=== PATIENT | female | born 1970 | race Two or more races ===

== ENCOUNTER 2017-09-01 12:30 | Inpatient (IN) | payer MEDICAID ==
[~2017-09-01] VITALS: Ht 160 cm; Wt 113.8 kg
[2017-09-01] MEDS ORDERED: ASPirin 81 mg TAB PO ONE (12:45)
[2017-09-01] MEDS ORDERED: HEPARIN SODIUM (PORCINE) 5000 UNITS/ML 1ML VIAL ONE (12:51)
[2017-09-01] MEDS ORDERED: IOHEXOL 350 MG/ML 100ML IJ ONE (12:53)
[2017-09-01] MEDS ORDERED: LIDOCAINE 2%HCL (LOCAL ANESTH.) INJ 20ML MDV ONE (12:53)
[2017-09-01] MEDS ORDERED: VERAPAMIL 2.5MG/ML INJ 2ML VIAL IV ONE (12:59)
[2017-09-01] MEDS ORDERED: ANGIOMAX 250 MG VIAL IV ONE ×2 (12:59→13:25)
[2017-09-01] MEDS ORDERED: HEPARIN 1,000 UNITS/ml 1ML VIAL IV ONE (13:00)
[2017-09-01] MEDS ORDERED: fentaNYL CITRATE 100 MCG/2 ML VL ONE (13:00)
[2017-09-01] MEDS ORDERED: ONDANSETRON HCL 4 MG/2 ML VIAL IV ONE (13:00)
[2017-09-01] MEDS ORDERED: MORPHINE SULFATE 4 MG/ML SYR/VIAL IV ONE (13:00)
[2017-09-01] MEDS ORDERED: MIDAZOLAM HCL 1MG/1ML-2 ML VIAL ONE ×2 (13:00→13:27)
[2017-09-01] MEDS ORDERED: SODIUM CHL 0.9% 50 ML ONE ×2 (13:00→13:25)
[2017-09-01 13:06] LABS: Basophils # (auto) 0.2 uL; Basophils % (auto) 1.1 % (0.0-2.0); Eosinophils # (auto) 0 uL; Eosinophils % (auto) 0.1 % (0.0-7.0); Hematocrit 47.1 % (36.0-46.0); Hemoglobin 14.9 g/dL (12.2-16.2); Lymphocytes # (auto) 1.3 uL; Lymphocytes % (auto) 7.5 % (10.0-50.0); Mean Corpuscular Hemoglobin 28.3 pg (28.0-32.0); Mean Corpuscular Hgb Conc. 31.7 g/dL (32.0-36.0); Mean Corpuscular Volume 89.3 fL (80.0-100.0); Monocytes # (auto) 0.6 uL; Monocytes % (auto) 3.5 % (0.0-12.0); Neutrophils % (auto) 87.8 % (37.0-80.0); Nucleated Red Blood Cells % 0.2 %; Platelet Count (auto) 265 10^3/uL (140-450); Red Blood Cells 5.27 10^6/uL (4.0-5.20); White Blood Cell 17.1 10^3/uL (4.4-10.8)
[2017-09-01 13:18] LABS: INR 0.95 (0.9-1.15); Partial Thromboplastin Time 24.7 sec (22.64-33.71); Prothrombin Time 10.4 sec (9.37-12.3)
[2017-09-01] MEDS ORDERED: NITROGLYCERIN 0.4MG/DOSE SPRAY 4.9GM ONE (13:24)
[2017-09-01 13:26] LABS: Albumin 3.7 g/dL (3.4-5.0); Calcium 9.2 mg/dL (8.5-10.1); Magnesium 2.3 mg/dL (1.6-2.6); Potassium 4.4 mmol/L (3.5-5.1)
[2017-09-01 13:28] LABS: BUN/Creatinine Ratio 9.4
[2017-09-01] MEDS ORDERED: ATROPINE SULF 0.5 MG/5ML SYR ONE (13:32)
[2017-09-01 13:43] LABS: Total Protein 8.7 g/dL (6.4-8.2)
[2017-09-01] MEDS ORDERED: TICAGRELOR 90 MG TAB ONE (13:59)
[2017-09-01] MEDS ORDERED: NITROGLYCERIN 0.4 MG SL TAB SL PRN (14:15)
[2017-09-01] MEDS ORDERED: DEXTROSE (50%) 50ML SYRG IV PRN (14:15)
[2017-09-01] MEDS ORDERED: SODIUM CHLORIDE 0.9% 1,000 ML IV SCH (14:15)
[2017-09-01] MEDS ORDERED: diphenhdrAMINE HCL 50 MG/1 ML VL IV ONE (14:30)
[2017-09-01] MEDS: SODIUM CHLORIDE 0.9% 1,000 ML IV SCH (14:45)
[2017-09-01 15:18] LABS: Basophils # (auto) 0.1 uL; Basophils % (auto) 0.4 % (0.0-2.0); Eosinophils # (auto) 0 uL; Hematocrit 45.6 % (36.0-46.0); Hemoglobin 14.3 g/dL (12.2-16.2); Lymphocytes # (auto) 1.1 uL; Lymphocytes % (auto) 5.9 % (10.0-50.0); Mean Corpuscular Hgb Conc. 31.5 g/dL (32.0-36.0); Mean Corpuscular Volume 89.1 fL (80.0-100.0); Monocytes # (auto) 0.5 uL; Monocytes % (auto) 2.9 % (0.0-12.0); Neutrophils # (auto) 16.6 uL; Neutrophils % (auto) 90.8 % (37.0-80.0); Nucleated Red Blood Cells % 0.1 %; Platelet Count (auto) 261 10^3/uL (140-450); Red Blood Cells 5.12 10^6/uL (4.0-5.20); Red Cell Distribution Width 15.2 % (11.8-14.3); White Blood Cell 18.3 10^3/uL (4.4-10.8)
[2017-09-01 15:25] LABS: Urine Bacteria NONE SEEN /hpf (None Seen); Urine Blood TRACE /uL (Negative); Urine WBC 1 /hpf (0 - 5)
[2017-09-01 15:41] LABS: Urine Specific Gravity > 1.050 (1.001-1.035)
[2017-09-01 15:49] LABS: BUN/Creatinine Ratio 9.2; Calcium 8.5 mg/dL (8.5-10.1)
[2017-09-01 15:59] LABS: Potassium 4.6 mmol/L (3.5-5.1)
[2017-09-01] MEDS: TICAGRELOR 90 MG TAB PO SCH (16:12)
[2017-09-01 17:19] VITALS: BP 123/78
[2017-09-01] MEDS ORDERED: FLUO-125 PO (17:31)
[2017-09-01] MEDS ORDERED: METF-370 PO (17:31)
[2017-09-01] MEDS ORDERED: GLIP-116 PO (17:31)
[2017-09-01] MEDS: InsuLIN REG 1unit/0.01ml Soln (100units/ml) SC SCH (18:03)
[2017-09-01] MEDS: ACCU-CHEK COMFORT CURVE STRIP VI SCH (18:03)
[2017-09-01] MEDS: MORPHINE SULFATE 4 MG/ML SYR/VIAL IV PRN ×2 (18:55→21:58)
[2017-09-01 20:00] VITALS: BP 123/78
[2017-09-01 21:56] VITALS: BP 149/77
[2017-09-01] MEDS: ATORVASTATIN 20 MG TAB PO SCH (21:56)
[2017-09-01] MEDS: ACETAMINOPHEN 325 MG TAB PO PRN (21:57)
[2017-09-01] MEDS: METOPROLOL TARTRATE 25 MG TAB PO SCH (22:11)
[2017-09-02] MEDS: SODIUM CHLORIDE 0.9% 1,000 ML IV SCH ×3 (00:45→20:18)
[2017-09-02 05:28] VITALS: BP 137/80
[2017-09-02] MEDS: InsuLIN REG 1unit/0.01ml Soln (100units/ml) SC SCH ×5 (06:00→23:57)
[2017-09-02] MEDS: ACCU-CHEK COMFORT CURVE STRIP VI SCH ×5 (06:00→23:53)
[2017-09-02 06:14] LABS: Basophils # (auto) 0.2 uL; Basophils % (auto) 1.2 % (0.0-2.0); Eosinophils # (auto) 0.1 uL; Eosinophils % (auto) 0.5 % (0.0-7.0); Hematocrit 39.5 % (36.0-46.0); Hemoglobin 12.8 g/dL (12.2-16.2); Lymphocytes # (auto) 2.2 uL; Lymphocytes % (auto) 16.6 % (10.0-50.0); Mean Corpuscular Hemoglobin 28.7 pg (28.0-32.0); Mean Corpuscular Hgb Conc. 32.5 g/dL (32.0-36.0); Mean Corpuscular Volume 88.3 fL (80.0-100.0); Monocytes % (auto) 7.7 % (0.0-12.0); Neutrophils # (auto) 9.7 uL; Nucleated Red Blood Cells % 0.1 %; Platelet Count (auto) 253 10^3/uL (140-450); Red Blood Cells 4.47 10^6/uL (4.0-5.20); Red Cell Distribution Width 15.1 % (11.8-14.3); White Blood Cell 13.2 10^3/uL (4.4-10.8)
[2017-09-02 06:32] LABS: BUN/Creatinine Ratio 10.8; Calcium 8.2 mg/dL (8.5-10.1)
[2017-09-02 08:00] VITALS: BP 143/80
[2017-09-02 09:00] VITALS: BP 143/80
[2017-09-02] MEDS ORDERED: IODIXANOL 320MG/ML 100ML BTL IV ONE (09:26)
[2017-09-02] MEDS ORDERED: LIDOCAINE 2%HCL (LOCAL ANESTH.) INJ 20ML MDV ONE (09:26)
[2017-09-02] MEDS ORDERED: SODIUM CHL 0.9% 50 ML ONE ×2 (09:27→13:58)
[2017-09-02] MEDS ORDERED: ANGIOMAX 250 MG VIAL IV ONE ×2 (09:27→13:58)
[2017-09-02] MEDS ORDERED: MIDAZOLAM HCL 1MG/1ML-2 ML VIAL ONE (09:28)
[2017-09-02] MEDS ORDERED: fentaNYL CITRATE 100 MCG/2 ML VL ONE (09:28)
[2017-09-02] MEDS: METOPROLOL TARTRATE 25 MG TAB PO SCH ×2 (10:00→21:35)
[2017-09-02] MEDS: ASPirin 81 mg TAB PO SCH (10:00)
[2017-09-02] MEDS: TICAGRELOR 90 MG TAB PO SCH ×2 (10:00→21:35)
[2017-09-02] MEDS ORDERED: TICAGRELOR 90 MG TAB ONE (10:58)
[2017-09-02] MEDS ORDERED: ASPirin 81 mg TAB PO ONE (11:15)
[2017-09-02] MEDS ORDERED: TICAGRELOR 90 MG TAB PO ONE (11:30)
[2017-09-02] MEDS ORDERED: METOPROLOL TARTRATE 25 MG TAB PO ONE (11:30)
[2017-09-02 17:11] VITALS: BP 137/78
[2017-09-02] MEDS: glipiZIDE 5 MG TAB PO SCH (17:16)
[2017-09-02] MEDS: ACETAMINOPHEN 325 MG TAB PO PRN (17:16)
[2017-09-02] MEDS: ATORVASTATIN 20 MG TAB PO SCH (21:36)
[2017-09-02 22:00] VITALS: BP 134/82
[2017-09-03 05:00] VITALS: BP 125/74
[2017-09-03] MEDS: InsuLIN REG 1unit/0.01ml Soln (100units/ml) SC SCH ×3 (06:41→18:10)
[2017-09-03] MEDS: ACCU-CHEK COMFORT CURVE STRIP VI SCH ×3 (06:42→17:27)
[2017-09-03] MEDS: SODIUM CHLORIDE 0.9% 1,000 ML IV SCH ×2 (06:42→11:36)
[2017-09-03] MEDS: glipiZIDE 5 MG TAB PO SCH ×2 (06:42→18:10)
[2017-09-03 07:06] LABS: Basophils # (auto) 0 uL; Basophils % (auto) 0.2 % (0.0-2.0); Eosinophils # (auto) 0.1 uL; Eosinophils % (auto) 0.7 % (0.0-7.0); Hematocrit 37.4 % (36.0-46.0); Hemoglobin 12.3 g/dL (12.2-16.2); Lymphocytes % (auto) 18.5 % (10.0-50.0); Mean Corpuscular Hemoglobin 29.1 pg (28.0-32.0); Mean Corpuscular Hgb Conc. 32.9 g/dL (32.0-36.0); Mean Corpuscular Volume 88.4 fL (80.0-100.0); Monocytes # (auto) 0.9 uL; Monocytes % (auto) 8.2 % (0.0-12.0); Neutrophils # (auto) 7.9 uL; Neutrophils % (auto) 72.4 % (37.0-80.0); Nucleated Red Blood Cells % 0.1 %; Platelet Count (auto) 203 10^3/uL (140-450); Red Blood Cells 4.23 10^6/uL (4.0-5.20); Red Cell Distribution Width 14.8 % (11.8-14.3); White Blood Cell 10.8 10^3/uL (4.4-10.8)
[2017-09-03 07:22] LABS: Calcium 7.9 mg/dL (8.5-10.1); Potassium 4.2 mmol/L (3.5-5.1)
[2017-09-03 07:25] LABS: BUN/Creatinine Ratio 14.1
[2017-09-03 08:00] VITALS: BP 129/68
[2017-09-03] MEDS: ASPirin 81 mg TAB PO SCH (10:45)
[2017-09-03] MEDS: METOPROLOL TARTRATE 25 MG TAB PO SCH ×2 (10:45→22:09)
[2017-09-03] MEDS: FLUoxetine HCL 20 MG CAP PO SCH (10:45)
[2017-09-03] MEDS: TICAGRELOR 90 MG TAB PO SCH ×2 (10:45→22:08)
[2017-09-03 12:00] VITALS: BP 121/75
[2017-09-03 17:00] VITALS: BP 104/68
[2017-09-03 22:00] VITALS: BP 113/70
[2017-09-03] MEDS: ATORVASTATIN 20 MG TAB PO SCH (22:09)
[2017-09-04] MEDS: InsuLIN REG 1unit/0.01ml Soln (100units/ml) SC SCH ×3 (00:12→12:26)
[2017-09-04] MEDS: ACCU-CHEK COMFORT CURVE STRIP VI SCH ×3 (00:12→12:26)
[2017-09-04 04:56] VITALS: BP 110/68
[2017-09-04] MEDS: SODIUM CHLORIDE 0.9% 1,000 ML IV SCH (05:52)
[2017-09-04] MEDS: glipiZIDE 5 MG TAB PO SCH (06:19)
[2017-09-04 08:00] VITALS: BP 114/74
[2017-09-04] MEDS: TICAGRELOR 90 MG TAB PO SCH (11:13)
[2017-09-04] MEDS: ASPirin 81 mg TAB PO SCH (11:13)
[2017-09-04] MEDS: METOPROLOL TARTRATE 25 MG TAB PO SCH (11:14)
[2017-09-04] MEDS: FLUoxetine HCL 20 MG CAP PO SCH (11:14)
[2017-09-04 12:23] VITALS: BP 105/69
[2017-09-04 17:04] VITALS: BP 116/73
== END 2017-09-04 18:40 | disposition home or self-care (01) | DRG 174 ==
LOC: ER 12:30 → CATH 12:54 → TELE-WESTW 12:55
PROVIDERS: ADMIT Internal Medicine Cardiovascular Disease; ATTEND Internal Medicine
PROC: 027035Z Dilation of Coronary Artery, One Artery with Two Drug-eluting Intraluminal Devices, Percutaneous Approach (ICD-10-PCS; principal; 2017-09-01)
PROC: 4A023N7 Measurement of Cardiac Sampling and Pressure, Left Heart, Percutaneous Approach (ICD-10-PCS; 2017-09-01)
PROC: B2111ZZ Fluoroscopy of Multiple Coronary Arteries using Low Osmolar Contrast (ICD-10-PCS; 2017-09-01)
PROC: B2151ZZ Fluoroscopy of Left Heart using Low Osmolar Contrast (ICD-10-PCS; 2017-09-01)
PROC: 027135Z Dilation of Coronary Artery, Two Arteries with Two Drug-eluting Intraluminal Devices, Percutaneous Approach (ICD-10-PCS; 2017-09-02)
DX: I21.19 ST elevation (STEMI) myocardial infarction involving other coronary artery of inferior wall (principal); R65.10 Systemic inflammatory response syndrome (SIRS) of non-infectious origin without acute organ dysfunction; Z68.41 Body mass index [BMI] 40.0-44.9, adult; E66.01 Morbid (severe) obesity due to excess calories; E11.65 Type 2 diabetes mellitus with hyperglycemia; D72.829 Elevated white blood cell count, unspecified; E78.5 Hyperlipidemia, unspecified; I25.10 Atherosclerotic heart disease of native coronary artery without angina pectoris; Z82.49 Family history of ischemic heart disease and other diseases of the circulatory system; Z91.19 Patient's noncompliance with other medical treatment and regimen; Z79.899 Other long term (current) drug therapy; Z79.82 Long term (current) use of aspirin
CPT/HCPCS: 36415; 71045; 80048; 80053; 81001; 82962; 83036; 83735; 84484; 85025; 85610; 85730; 92928; 93005; 93458; 94761; 96374; 96375; 99152; 99153; 99291; C1874; C1887; J0461; J1815; J2250; J2405; Q9967

== ENCOUNTER 2018-06-20 13:34 | Emergency (ER) | payer MEDICAID ==
[~2018-06-20] VITALS: Ht 165.1 cm; Wt 104.3 kg
[~2018-06-20 13:34] MED LIST: FLUO-125 PO; METF-370 PO
[2018-06-20 14:20] LABS: Basophils # (auto) 0.1 uL; Eosinophils # (auto) 0.3 uL; Monocytes # (auto) 0.8 uL
[2018-06-20 14:22] LABS: Eosinophils % (auto) 2.6 % (0.0-7.0); Hemoglobin 11.4 g/dL (12.2-16.2); Lymphocytes % (auto) 24.6 % (10.0-50.0); Mean Corpuscular Hemoglobin 24.7 pg (28.0-32.0); Mean Corpuscular Hgb Conc. 30.7 g/dL (32.0-36.0); Mean Corpuscular Volume 80.4 fL (80.0-100.0); Monocytes % (auto) 6.8 % (0.0-12.0); Neutrophils # (auto) 7.8 uL; Nucleated Red Blood Cells % 0.2 %; Platelet Count (auto) 289 10^3/uL (140-450); Red Cell Distribution Width 17.9 % (11.8-14.3); White Blood Cell 12.1 10^3/uL (4.4-10.8)
[2018-06-20 14:48] LABS: Alanine Aminotransferase 19 U/L (13-56); Albumin 3.3 g/dL (3.4-5.0); Anion Gap 8 (5-15); Aspartate Aminotransferase 17 U/L (15-37); BUN/Creatinine Ratio 10.4; Blood Urea Nitrogen 8 mg/dL (7-18); Calcium 8.7 mg/dL (8.5-10.1); Carbon Dioxide 26 mmol/L (21-32); Chloride 104 mmol/L (98-107); GFR African American 103 mL/min; GFR Non-African American 85 mL/min; Glucose 120 mg/dL (74-106); Potassium 3.8 mmol/L (3.5-5.1); Sodium 138 mmol/L (136-145)
[2018-06-20 14:52] LABS: Alkaline Phosphatase 79 U/L (45-117); Bilirubin, Total 0.6 mg/dL (0.2-1.0); Total Protein 7.9 g/dL (6.4-8.2)
[2018-06-20 14:56] LABS: Urine Bacteria FEW /hpf (None Seen); Urine Blood 2+ /uL (Negative); Urine Specific Gravity 1.006 (1.001-1.035); Urine WBC 19 /hpf (0 - 5)
[2018-06-20 16:51] VITALS: BP 148/73
== END 2018-06-20 17:29 | disposition home or self-care (01) ==
LOC: ER 13:37
DX: R07.9 Chest pain, unspecified (principal); R11.2 Nausea with vomiting, unspecified; N39.0 Urinary tract infection, site not specified; J45.909 Unspecified asthma, uncomplicated; E11.9 Type 2 diabetes mellitus without complications; E78.5 Hyperlipidemia, unspecified; I10 Essential (primary) hypertension; I25.2 Old myocardial infarction; Z98.51 Tubal ligation status; Z98.61 Coronary angioplasty status
CPT/HCPCS: 36415; 71046; 80053; 81001; 84484; 85025; 87086; 93005; 94761

== ENCOUNTER 2018-09-14 20:33 | Emergency (ER) | payer MEDICAID ==
[~2018-09-14] VITALS: Ht 157.5 cm; Wt 104.3 kg
[2018-09-14 21:11] LABS: Basophils # (auto) 0.1 uL; Eosinophils # (auto) 0.4 uL; Hemoglobin 10.6 g/dL (12.2-16.2); Neutrophils # (auto) 6.7 uL; Nucleated Red Blood Cells % 0.1 %
[2018-09-14 21:13] LABS: Basophils % (auto) 0.6 % (0.0-2.0); Eosinophils % (auto) 3.2 % (0.0-7.0); Hematocrit 34.7 % (36.0-46.0); Lymphocytes # (auto) 2.9 uL; Lymphocytes % (auto) 26.1 % (10.0-50.0); Mean Corpuscular Hemoglobin 23.2 pg (28.0-32.0); Mean Corpuscular Hgb Conc. 30.4 g/dL (32.0-36.0); Mean Corpuscular Volume 76.3 fL (80.0-100.0); Monocytes % (auto) 9.3 % (0.0-12.0); Neutrophils % (auto) 60.8 % (37.0-80.0); Platelet Count (auto) 357 10^3/uL (140-450); Red Blood Cells 4.56 10^6/uL (4.0-5.20); White Blood Cell 11.1 10^3/uL (4.4-10.8)
[2018-09-14 21:25] LABS: Alanine Aminotransferase 17 U/L (13-56); Albumin 3.3 g/dL (3.4-5.0); Anion Gap 8 (5-15); Aspartate Aminotransferase 11 U/L (15-37); Blood Urea Nitrogen 10 mg/dL (7-18); Calcium 8.9 mg/dL (8.5-10.1); Carbon Dioxide 25 mmol/L (21-32); Chloride 107 mmol/L (98-107); GFR African American 95 mL/min; GFR Non-African American 78 mL/min; Glucose 146 mg/dL (74-106); Potassium 3.9 mmol/L (3.5-5.1); Sodium 140 mmol/L (136-145)
[2018-09-14 21:30] LABS: Alkaline Phosphatase 67 U/L (45-117); Bilirubin, Total 0.4 mg/dL (0.2-1.0); Total Protein 7.7 g/dL (6.4-8.2)
[2018-09-15 02:07] LABS: Urine Bacteria MANY /hpf (None Seen); Urine Blood Negative /uL (Negative); Urine Budding Yeast MODERATE /hpf (None Seen); Urine Specific Gravity 1.032 (1.001-1.035); Urine WBC 21 /hpf (0 - 5)
[2018-09-15 03:12] VITALS: BP 108/44
== END 2018-09-15 03:20 | disposition home or self-care (01) ==
LOC: ER 20:36
DX: R07.89 Other chest pain (principal); N39.0 Urinary tract infection, site not specified; J45.909 Unspecified asthma, uncomplicated; E11.9 Type 2 diabetes mellitus without complications; E78.5 Hyperlipidemia, unspecified; I10 Essential (primary) hypertension; I25.2 Old myocardial infarction; Z98.51 Tubal ligation status; Z98.61 Coronary angioplasty status
CPT/HCPCS: 36415; 71045; 80053; 81001; 83735; 83880; 84443; 84484; 85025; 93005

== ENCOUNTER 2018-09-25 12:46 | Emergency (ER) | payer MEDICAID ==
[~2018-09-25] VITALS: Ht 157.5 cm; Wt 107.0 kg
[2018-09-25] MEDS ORDERED: ASPirin 81 mg TAB PO ONE (13:30)
[2018-09-25] MEDS ORDERED: NITROGLYCERIN 0.4 MG SL TAB SL ONE (13:30)
[2018-09-25 13:33] LABS: Basophils # (auto) 0.1 uL; Eosinophils # (auto) 0.4 uL
[2018-09-25 13:35] LABS: Basophils % (auto) 0.9 % (0.0-2.0); Eosinophils % (auto) 3.1 % (0.0-7.0); Hematocrit 37.4 % (36.0-46.0); Hemoglobin 11.2 g/dL (12.2-16.2); Lymphocytes # (auto) 2.9 uL; Lymphocytes % (auto) 23.5 % (10.0-50.0); Mean Corpuscular Hemoglobin 22.9 pg (28.0-32.0); Mean Corpuscular Volume 76.4 fL (80.0-100.0); Monocytes % (auto) 8.3 % (0.0-12.0); Neutrophils # (auto) 7.9 uL; Neutrophils % (auto) 64.2 % (37.0-80.0); Platelet Count (auto) 363 10^3/uL (140-450); Red Blood Cells 4.89 10^6/uL (4.0-5.20); Red Cell Distribution Width 17.7 % (11.8-14.3); White Blood Cell 12.3 10^3/uL (4.4-10.8)
[2018-09-25 13:41] LABS: Urine Bacteria FEW /hpf (None Seen); Urine Blood Negative /uL (Negative); Urine Budding Yeast OCCASIONAL /hpf (None Seen); Urine Specific Gravity 1.034 (1.001-1.035); Urine WBC 3 /hpf (0 - 5)
[2018-09-25 13:53] LABS: INR 0.93 (0.9-1.15); Partial Thromboplastin Time 29.2 sec (23.78-33.04)
[2018-09-25 13:55] LABS: Chloride 108 mmol/L (98-107); Potassium 3.9 mmol/L (3.5-5.1); Sodium 137 mmol/L (136-145)
[2018-09-25 14:06] LABS: Alanine Aminotransferase 17 U/L (13-56); Albumin 3.4 g/dL (3.4-5.0); Alkaline Phosphatase 77 U/L (45-117); Anion Gap 6 (5-15); Aspartate Aminotransferase 15 U/L (15-37); BUN/Creatinine Ratio 13.8; Bilirubin, Total 0.8 mg/dL (0.2-1.0); Blood Urea Nitrogen 11 mg/dL (7-18); Calcium 8.5 mg/dL (8.5-10.1); Carbon Dioxide 23 mmol/L (21-32); GFR African American 99 mL/min; GFR Non-African American 82 mL/min; Glucose 85 mg/dL (74-106); Total Protein 8.2 g/dL (6.4-8.2)
[2018-09-25 21:05] VITALS: BP 140/83
[2018-09-25] MEDS ORDERED: ONDANSETRON HCL 4 MG/2 ML VIAL ONE (23:10)
[2018-09-25] MEDS ORDERED: MORPHINE SULFATE 4 MG/ML SYR/VIAL ONE (23:10)
[2018-09-26] MEDS ORDERED: SITA100T7 PO (17:56)
[2018-09-26] MEDS ORDERED: CLOP75TA41 PO (17:56)
[2018-09-26] MEDS ORDERED: ASPI81TA27 PO (17:56)
[2018-09-26] MEDS ORDERED: RANO500T PO (17:56)
[2018-09-26] MEDS ORDERED: METO25TA62 PO (17:56)
[2018-09-26] MEDS ORDERED: CLOP75TA28 PO (17:56)
[2018-09-26] MEDS ORDERED: ATO40T PO (17:56)
[2018-09-26] MEDS ORDERED: CANA100T OR (17:56)
[2018-09-26] MEDS ORDERED: GLIM4TAB42 PO (17:56)
== END 2018-09-25 21:24 | disposition home or self-care (01) ==
LOC: ER 12:46
DX: N39.0 Urinary tract infection, site not specified (principal); J45.909 Unspecified asthma, uncomplicated; E11.9 Type 2 diabetes mellitus without complications; I25.2 Old myocardial infarction; I10 Essential (primary) hypertension; Z98.51 Tubal ligation status; Z98.61 Coronary angioplasty status
CPT/HCPCS: 36415; 80053; 81001; 84443; 84484; 85025; 85610; 85730; 93005; 99284; J2270; J2405

== ENCOUNTER 2018-09-25 20:58 | Inpatient (IN) | payer MEDICAID ==
[~2018-09-25] VITALS: Ht 160 cm; Wt 108.8 kg
[2018-09-25 21:54] LABS: Basophils # (auto) 0.1 uL; Eosinophils # (auto) 0.3 uL; Eosinophils % (auto) 2.8 % (0.0-7.0); Lymphocytes # (auto) 2.9 uL; Nucleated Red Blood Cells % 0.1 %; Red Blood Cells 4.84 10^6/uL (4.0-5.20)
[2018-09-25 21:56] LABS: Basophils % (auto) 0.8 % (0.0-2.0); Hematocrit 36.8 % (36.0-46.0); Hemoglobin 11.4 g/dL (12.2-16.2); Lymphocytes % (auto) 24.5 % (10.0-50.0); Mean Corpuscular Hemoglobin 23.6 pg (28.0-32.0); Monocytes % (auto) 8.3 % (0.0-12.0); Neutrophils # (auto) 7.6 uL; Neutrophils % (auto) 63.6 % (37.0-80.0); Platelet Count (auto) 351 10^3/uL (140-450); Red Cell Distribution Width 17.5 % (11.8-14.3)
[2018-09-25 22:14] LABS: Albumin 3.3 g/dL (3.4-5.0); Anion Gap 5 (5-15); Blood Urea Nitrogen 13 mg/dL (7-18); Carbon Dioxide 26 mmol/L (21-32); Chloride 108 mmol/L (98-107); Glucose 110 mg/dL (74-106); Magnesium 2.3 mg/dL (1.6-2.6); Potassium 4.1 mmol/L (3.5-5.1); Sodium 139 mmol/L (136-145)
[2018-09-25 22:14] LABS: Urine Bacteria FEW /hpf (None Seen); Urine Blood Negative /uL (Negative); Urine Specific Gravity 1.035 (1.001-1.035); Urine WBC 3 /hpf (0 - 5)
[2018-09-25 22:16] LABS: Alanine Aminotransferase 17 U/L (13-56); Aspartate Aminotransferase 14 U/L (15-37); BUN/Creatinine Ratio 13.5; GFR African American 80 mL/min; GFR Non-African American 66 mL/min
[2018-09-25 22:17] LABS: INR 0.93 (0.9-1.15); Partial Thromboplastin Time 27.9 sec (23.78-33.04)
[2018-09-25 22:21] LABS: Alkaline Phosphatase 73 U/L (45-117); Bilirubin, Total 0.7 mg/dL (0.2-1.0)
[2018-09-25] MEDS ORDERED: MORPHINE SULFATE 4 MG/ML SYR/VIAL IV ONE (23:15)
[2018-09-25] MEDS ORDERED: ONDANSETRON HCL 4 MG/2 ML VIAL IV ONE (23:15)
[2018-09-25] MEDS ORDERED: cefTRIAXone 1GM/50ML D5W 50 ML IV ONE (23:30)
[2018-09-25] MEDS ORDERED: PROMETHAZINE W/CODEINE 5 ML ORAL SYRUP PO ONE (23:30)
[2018-09-26] MEDS ORDERED: MORPHINE SULFATE 4 MG/ML SYR/VIAL IV PRN ×2 (02:00)
[2018-09-26] MEDS ORDERED: ONDANSETRON HCL 4 MG/2 ML VIAL IV PRN (02:00)
[2018-09-26] MEDS ORDERED: TEMAZEPAM 15 MG CAP PO PRN (02:00)
[2018-09-26] MEDS ORDERED: DEXTROSE (50%) 50ML SYRG IV PRN (02:00)
[2018-09-26] MEDS ORDERED: NITROGLYCERIN 0.4 MG SL TAB SL PRN (02:00)
[2018-09-26] MEDS ORDERED: ACETAMINOPHEN 500 MG TAB PO PRN (02:00)
[2018-09-26] MEDS ORDERED: AZITHROMYCIN 500MG/ 250ML 250 ML IV ONE (03:45)
[2018-09-26] MEDS: ACCU-CHEK COMFORT CURVE STRIP VI SCH ×4 (06:46→22:59)
[2018-09-26] MEDS: InsuLIN REG 1unit/0.01ml Soln (100units/ml) SC SCH ×4 (06:51→23:00)
[2018-09-26 07:19] LABS: Basophils # (auto) 0.1 uL; Basophils % (auto) 0.6 % (0.0-2.0); Eosinophils # (auto) 0.3 uL; Nucleated Red Blood Cells % 0.1 %; White Blood Cell 9.3 10^3/uL (4.4-10.8)
[2018-09-26 07:22] LABS: Eosinophils % (auto) 3.1 % (0.0-7.0); Hematocrit 32.8 % (36.0-46.0); Hemoglobin 10.1 g/dL (12.2-16.2); Lymphocytes # (auto) 2.3 uL; Lymphocytes % (auto) 25.4 % (10.0-50.0); Mean Corpuscular Hemoglobin 23.3 pg (28.0-32.0); Mean Corpuscular Hgb Conc. 30.7 g/dL (32.0-36.0); Mean Corpuscular Volume 75.7 fL (80.0-100.0); Monocytes # (auto) 0.7 uL; Monocytes % (auto) 7.7 % (0.0-12.0); Neutrophils # (auto) 5.9 uL; Neutrophils % (auto) 63.2 % (37.0-80.0); Platelet Count (auto) 289 10^3/uL (140-450); Red Blood Cells 4.34 10^6/uL (4.0-5.20); Red Cell Distribution Width 17.8 % (11.8-14.3)
[2018-09-26 07:38] LABS: Potassium 3.6 mmol/L (3.5-5.1)
[2018-09-26] MEDS ORDERED: methylPREDNISolone SOD SUCC 40 MG/ML VL IV ONE (09:00)
[2018-09-26] MEDS: METOPROLOL SUCCINATE XL 50 MG TAB PO SCH (09:35)
[2018-09-26] MEDS: FLUoxetine HCL 20 MG CAP PO SCH (09:35)
[2018-09-26] MEDS: CLOPIDOGREL BISULFATE 75 MG TAB PO SCH (09:35)
[2018-09-26] MEDS: ASPirin-EC 81 mg tab PO SCH (09:35)
[2018-09-26] MEDS: RANOLAZINE ER 500 MG TAB PO SCH ×2 (09:35→22:15)
--- NOTE | 2018-09-26 15:46 | NUR ---
REPORT RECEIVED FROM PENNY
[2018-09-26] MEDS ORDERED: guaiFENesin-DM 100/10mg/5ml SYR PO PRN (17:00)
[2018-09-26 17:21] VITALS: BP 123/70
[2018-09-26] MEDS ORDERED: METO25TA62 PO (17:56)
[2018-09-26] MEDS ORDERED: CANA100T OR (17:56)
[2018-09-26] MEDS ORDERED: CLOP75TA28 PO (17:56)
[2018-09-26] MEDS ORDERED: RANO500T PO (17:56)
[2018-09-26] MEDS ORDERED: CLOP75TA41 PO (17:56)
[2018-09-26] MEDS ORDERED: ATO40T PO (17:56)
[2018-09-26] MEDS ORDERED: ASPI81TA27 PO (17:56)
[2018-09-26] MEDS ORDERED: SITA100T7 PO (17:56)
[2018-09-26] MEDS ORDERED: GLIM4TAB42 PO (17:56)
[2018-09-26 22:00] VITALS: BP 110/66
[2018-09-26] MEDS: ATORVASTATIN 20 MG TAB PO SCH (22:14)
[2018-09-27] VITALS (7 sets, daily range): BP systolic 97–137; BP diastolic 64–90
[2018-09-27 05:54] LABS: Basophils # (auto) 0.1 uL; Eosinophils # (auto) 0 uL; Hemoglobin 10.7 g/dL (12.2-16.2); Lymphocytes # (auto) 1.5 uL; Lymphocytes % (auto) 9.9 % (10.0-50.0); Monocytes # (auto) 0.8 uL
[2018-09-27 05:56] LABS: Basophils % (auto) 0.5 % (0.0-2.0); Hematocrit 35.1 % (36.0-46.0); Mean Corpuscular Hgb Conc. 30.4 g/dL (32.0-36.0); Mean Corpuscular Volume 75.9 fL (80.0-100.0); Monocytes % (auto) 5.1 % (0.0-12.0); Neutrophils # (auto) 13.2 uL; Neutrophils % (auto) 84.5 % (37.0-80.0); Nucleated Red Blood Cells % 0.1 %; Platelet Count (auto) 336 10^3/uL (140-450); Red Blood Cells 4.62 10^6/uL (4.0-5.20); Red Cell Distribution Width 17.5 % (11.8-14.3); White Blood Cell 15.6 10^3/uL (4.4-10.8)
[2018-09-27 06:19] LABS: BUN/Creatinine Ratio 21.7; Calcium 8.5 mg/dL (8.5-10.1)
[2018-09-27 06:22] LABS: Bilirubin, Total 0.6 mg/dL (0.2-1.0); Total Protein 7.2 g/dL (6.4-8.2)
[2018-09-27] MEDS: ACCU-CHEK COMFORT CURVE STRIP VI SCH ×4 (06:35→21:32)
[2018-09-27] MEDS: InsuLIN REG 1unit/0.01ml Soln (100units/ml) SC SCH ×4 (06:35→21:31)
--- NOTE | 2018-09-27 07:20 | NUR ---
REPORT RECEIVED FROM FELIX VALDERRAMA.
[2018-09-27] MEDS: ASPirin-EC 81 mg tab PO SCH (09:51)
[2018-09-27] MEDS: CLOPIDOGREL BISULFATE 75 MG TAB PO SCH (09:51)
[2018-09-27] MEDS: RANOLAZINE ER 500 MG TAB PO SCH ×2 (09:51→21:09)
[2018-09-27] MEDS: METOPROLOL SUCCINATE XL 50 MG TAB PO SCH (09:52)
[2018-09-27] MEDS: FLUoxetine HCL 20 MG CAP PO SCH (09:52)
[2018-09-27] MEDS: ALBUTEROL SULF 2.5 MG/0.5ML(0.5%) NEB SOLN NEB SCH (18:44)
--- NOTE | 2018-09-27 19:30 | NUR ---
ASSUMED CARE, PT. AWAKE, RELATIVE AT BEDSIDE, NO C/O PAIN, NO SOB.
[2018-09-27] MEDS: ATORVASTATIN 20 MG TAB PO SCH (21:09)
[2018-09-28 04:57] VITALS: BP 101/53
[2018-09-28] MEDS: InsuLIN REG 1unit/0.01ml Soln (100units/ml) SC SCH ×2 (06:09→11:30)
[2018-09-28] MEDS: ACCU-CHEK COMFORT CURVE STRIP VI SCH ×2 (06:09→12:33)
[2018-09-28 06:23] LABS: Basophils # (auto) 0 uL; Basophils % (auto) 0.3 % (0.0-2.0); Eosinophils # (auto) 0.2 uL; Eosinophils % (auto) 1.7 % (0.0-7.0); Hematocrit 36.3 % (36.0-46.0); Hemoglobin 10.9 g/dL (12.2-16.2); Lymphocytes # (auto) 3.7 uL; Lymphocytes % (auto) 32.7 % (10.0-50.0); Mean Corpuscular Hemoglobin 23.1 pg (28.0-32.0); Mean Corpuscular Volume 77.1 fL (80.0-100.0); Monocytes # (auto) 0.7 uL; Monocytes % (auto) 6.5 % (0.0-12.0); Neutrophils # (auto) 6.7 uL; Neutrophils % (auto) 58.8 % (37.0-80.0); Nucleated Red Blood Cells % 0.1 %; Platelet Count (auto) 330 10^3/uL (140-450); Red Blood Cells 4.72 10^6/uL (4.0-5.20); Red Cell Distribution Width 17.8 % (11.8-14.3); White Blood Cell 11.4 10^3/uL (4.4-10.8)
[2018-09-28 06:52] LABS: Calcium 8.1 mg/dL (8.5-10.1)
[2018-09-28 06:55] LABS: BUN/Creatinine Ratio 17.3
--- NOTE | 2018-09-28 07:40 | NUR ---
OPENING SHIFT PATIENT IS AWAKE, ALERT, AND ORIENTED X4. NO S/S OF DISTRESS, SOB, OR PAIN. RESPIRATIONS EVEN AND UNLABORED. BED IS IN LOWEST POSITION, SIDE RAILS UP X2, AND CALL LIGHT WITHIN REACH. DISCUSSED POC WITH PATIENT, PATIENT VERBALIZED UNDERSTANDING. WILL CONTINUE TO MONITOR Q1 HOUR AND PRN.
[2018-09-28] MEDS: ALBUTEROL SULF 2.5 MG/0.5ML(0.5%) NEB SOLN NEB SCH ×3 (07:42→11:22)
[2018-09-28 07:57] VITALS: BP 105/59
[2018-09-28] MEDS: METOPROLOL SUCCINATE XL 50 MG TAB PO SCH (10:08)
[2018-09-28] MEDS: FLUoxetine HCL 20 MG CAP PO SCH (10:08)
[2018-09-28] MEDS: CLOPIDOGREL BISULFATE 75 MG TAB PO SCH (10:08)
[2018-09-28] MEDS: RANOLAZINE ER 500 MG TAB PO SCH (10:08)
[2018-09-28] MEDS: ASPirin-EC 81 mg tab PO SCH (10:09)
--- NOTE | 2018-09-28 13:10 | NUR ---
DISCHARGE Discharge instructions given as ordered. Encourage to follow up with PCP as instructed. All questions and concerns addressed. Patient verbalized understanding. Prescriptions filled at [facility]. IV removed with catheter intact, pressure dressing applied. Telemetry unit returned to [facility]. Patient taken to vehicle via wheelchair with all personal belongings, accompanied by staff and family member. No distress noted at time of departure.
== END 2018-09-28 13:16 | disposition home or self-care (01) | DRG 198 ==
LOC: ER 21:00 → TELE 09-26 01:56 → TELE-WESTW 09-26 15:55
PROVIDERS: ADMIT Nurse Practitioner Family; ATTEND Internal Medicine
DX: R07.89 Other chest pain (principal); I25.10 Atherosclerotic heart disease of native coronary artery without angina pectoris; I11.0 Hypertensive heart disease with heart failure; E44.1 Mild protein-calorie malnutrition; I50.9 Heart failure, unspecified; E11.9 Type 2 diabetes mellitus without complications; E78.5 Hyperlipidemia, unspecified; E66.01 Morbid (severe) obesity due to excess calories; J45.909 Unspecified asthma, uncomplicated; I25.2 Old myocardial infarction; Z95.5 Presence of coronary angioplasty implant and graft; Z98.51 Tubal ligation status; Z79.84 Long term (current) use of oral hypoglycemic drugs; Z79.899 Other long term (current) drug therapy; Z68.41 Body mass index [BMI] 40.0-44.9, adult
CPT/HCPCS: 36415; 71045; 80048; 80053; 81001; 81025; 82962; 83036; 83735; 83880; 84443; 84484; 85025; 85379; 85610; 85730; 87081; 94640; 96365; 96367; 96375; G0378; J0696; J1815

== ENCOUNTER 2018-12-01 19:11 | Emergency (ER) | payer MEDICAID ==
[~2018-12-01] VITALS: Ht 160 cm; Wt 103.4 kg
[~2018-12-01 19:11] MED LIST changes: +ASPI81TA27 PO; +ATO40T PO; +CANA100T OR; +CLOP75TA28 PO; +CLOP75TA41 PO; +GLIM4TAB42 PO; +METO25TA62 PO; +RANO500T PO; +SITA100T7 PO
[2018-12-01 19:54] LABS: Basophils # (auto) 0.1 uL; Basophils % (auto) 0.5 % (0.0-2.0); Lymphocytes # (auto) 1.8 uL; Platelet Count (auto) 326 10^3/uL (140-450)
[2018-12-01 19:56] LABS: Eosinophils # (auto) 0.6 uL; Eosinophils % (auto) 4.5 % (0.0-7.0); Hematocrit 34.4 % (36.0-46.0); Hemoglobin 10.3 g/dL (12.2-16.2); Lymphocytes % (auto) 14.3 % (10.0-50.0); Mean Corpuscular Hgb Conc. 29.9 g/dL (32.0-36.0); Mean Corpuscular Volume 73.7 fL (80.0-100.0); Monocytes % (auto) 8.1 % (0.0-12.0); Neutrophils # (auto) 9.2 uL; Neutrophils % (auto) 72.6 % (37.0-80.0); Nucleated Red Blood Cells % 0.1 %; Red Blood Cells 4.66 10^6/uL (4.0-5.20); Red Cell Distribution Width 17.9 % (11.8-14.3); White Blood Cell 12.7 10^3/uL (4.4-10.8)
[2018-12-01 20:15] LABS: Albumin 3.3 g/dL (3.4-5.0); Anion Gap 8 (5-15); Blood Urea Nitrogen 6 mg/dL (7-18); Calcium 7.8 mg/dL (8.5-10.1); Carbon Dioxide 24 mmol/L (21-32); Chloride 108 mmol/L (98-107); Glucose 190 mg/dL (74-106); Magnesium 2.4 mg/dL (1.6-2.6); Potassium 3.7 mmol/L (3.5-5.1); Sodium 140 mmol/L (136-145)
[2018-12-01 20:21] LABS: Alanine Aminotransferase 23 U/L (13-56); Alkaline Phosphatase 84 U/L (45-117); Aspartate Aminotransferase 17 U/L (15-37); BUN/Creatinine Ratio 8.5; Bilirubin, Total 0.7 mg/dL (0.2-1.0); GFR African American 113 mL/min; GFR Non-African American 94 mL/min; Total Protein 7.4 g/dL (6.4-8.2)
[2018-12-01] MEDS ORDERED: IPRATROPIUM BROM 0.5 MG/2.5ML INH SOL NEB ONE (23:30)
[2018-12-01] MEDS ORDERED: methylPREDNISolone SOD SUCC 125 MG/2 ML VL IV ONE (23:30)
[2018-12-01] MEDS ORDERED: ALBUTEROL SULF 2.5 MG/0.5ML(0.5%) NEB SOLN NEB ONE (23:30)
[2018-12-01 23:33] LABS: Eosinophils # (auto) 0.6 uL; Hematocrit 33.2 % (36.0-46.0); Lymphocytes # (auto) 2.1 uL; Mean Corpuscular Volume 73.6 fL (80.0-100.0); Nucleated Red Blood Cells % 0.1 %; Red Blood Cells 4.51 10^6/uL (4.0-5.20)
[2018-12-01 23:34] LABS: Basophils # (auto) 0.1 uL; Eosinophils % (auto) 4.6 % (0.0-7.0); Hemoglobin 9.9 g/dL (12.2-16.2); Lymphocytes % (auto) 15.1 % (10.0-50.0); Mean Corpuscular Hgb Conc. 29.8 g/dL (32.0-36.0); Monocytes # (auto) 1.2 uL; Monocytes % (auto) 8.5 % (0.0-12.0); Neutrophils # (auto) 9.9 uL; Neutrophils % (auto) 70.8 % (37.0-80.0); Platelet Count (auto) 319 10^3/uL (140-450); Red Cell Distribution Width 18.3 % (11.8-14.3)
[2018-12-01 23:45] LABS: Albumin 3.1 g/dL (3.4-5.0); BUN/Creatinine Ratio 10.6; Calcium 8.4 mg/dL (8.5-10.1); Potassium 4.1 mmol/L (3.5-5.1)
[2018-12-01 23:48] LABS: Bilirubin, Total 0.8 mg/dL (0.2-1.0); Total Protein 7.3 g/dL (6.4-8.2)
[2018-12-02] MEDS ORDERED: HYDROcodone-ACET 10/325MG TAB PO ONE
[2018-12-02] MEDS ORDERED: cefTRIAXone 1GM/50ML D5W 50 ML IV ONE
[2018-12-02] MEDS ORDERED: LORazepam 2MG/ML-1ML VIAL IV ONE (01:45)
[2018-12-02 02:44] VITALS: BP 126/75
== END 2018-12-02 00:06 | disposition home or self-care (01) ==
LOC: ER 19:14
DX: J06.9 Acute upper respiratory infection, unspecified (principal); R06.02 Shortness of breath; D72.829 Elevated white blood cell count, unspecified; I25.810 Atherosclerosis of coronary artery bypass graft(s) without angina pectoris; E11.9 Type 2 diabetes mellitus without complications; E78.5 Hyperlipidemia, unspecified; I10 Essential (primary) hypertension; I25.2 Old myocardial infarction; Z98.61 Coronary angioplasty status; Z79.82 Long term (current) use of aspirin; Z79.01 Long term (current) use of anticoagulants; Z79.899 Other long term (current) drug therapy; Z79.84 Long term (current) use of oral hypoglycemic drugs; Z98.51 Tubal ligation status
CPT/HCPCS: 36415; 71045; 80053; 82550; 82962; 83735; 83880; 84484; 85025; 93005; 96365; 96375; 99284; J0696; J2060; J2930; J7611; J7644

== ENCOUNTER 2019-07-26 21:57 | Emergency (ER) | payer MEDICAID ==
[~2019-07-26] VITALS: Ht 157.5 cm; Wt 104.3 kg
[~2019-07-26 21:57] MED LIST changes: +ASPI-404 PO; -ASPI81TA27 PO; -METO25TA62 PO; +METO25TA93 PO
[2019-07-26 22:58] LABS: Eosinophils # (auto) 0.4 uL; Hemoglobin 10.7 g/dL (12.2-16.2); Nucleated Red Blood Cells % 0.1 %; Red Blood Cells 4.64 10^6/uL (4.0-5.20)
[2019-07-26 22:59] LABS: Basophils # (auto) 0.1 uL; Hematocrit 34.6 % (36.0-46.0); Lymphocytes # (auto) 2.7 uL; Lymphocytes % (auto) 22.6 % (10.0-50.0); Mean Corpuscular Hgb Conc. 30.9 g/dL (32.0-36.0); Mean Corpuscular Volume 74.5 fL (80.0-100.0); Monocytes % (auto) 7.9 % (0.0-12.0); Neutrophils # (auto) 7.9 uL; Neutrophils % (auto) 65.5 % (37.0-80.0); Platelet Count (auto) 348 10^3/uL (140-450); Red Cell Distribution Width 17.2 % (11.8-14.3)
[2019-07-26 23:15] LABS: Albumin 3.3 g/dL (3.4-5.0); Anion Gap 7 (5-15); BUN/Creatinine Ratio 14.3; Blood Urea Nitrogen 10 mg/dL (7-18); Carbon Dioxide 25 mmol/L (21-32); Chloride 108 mmol/L (98-107); GFR African American 115 mL/min; GFR Non-African American 95 mL/min; Glucose 142 mg/dL (74-106); Potassium 4.2 mmol/L (3.5-5.1); Sodium 140 mmol/L (136-145)
[2019-07-26 23:21] LABS: Alanine Aminotransferase 17 U/L (13-56); Alkaline Phosphatase 82 U/L (45-117); Aspartate Aminotransferase 16 U/L (15-37); Bilirubin, Total 0.5 mg/dL (0.2-1.0); Total Protein 7.6 g/dL (6.4-8.2)
[2019-07-27] MEDS ORDERED: MORPHINE SULFATE 4 MG/ML SYR/VIAL IV ONE (02:45)
[2019-07-27] MEDS ORDERED: NITROGLYCERIN 0.4 MG SL TAB SL ONE (02:45)
[2019-07-27] MEDS ORDERED: ONDANSETRON HCL 4 MG/2 ML VIAL IV ONE ×2 (03:15→03:45)
[2019-07-27 03:29] LABS: Urine Bacteria FEW /hpf (None Seen); Urine Blood 2+ /uL (Negative); Urine Mucus FEW (None Seen); Urine WBC 2 /hpf (0 - 5)
[2019-07-27] MEDS ORDERED: MORPHINE SULFATE 10 MG/ML INJ 1ML SDV IV ONE (03:45)
[2019-07-27] MEDS ORDERED: IOHEXOL 300 MG/ML 100ML BOTTLE IJ ONE (03:46)
[2019-07-27 06:00] VITALS: BP 137/65
== END 2019-07-27 06:55 | disposition home or self-care (01) ==
LOC: ER 21:57
DX: R07.89 Other chest pain (principal); K80.20 Calculus of gallbladder without cholecystitis without obstruction; I48.91 Unspecified atrial fibrillation; J45.909 Unspecified asthma, uncomplicated; E11.9 Type 2 diabetes mellitus without complications; E78.5 Hyperlipidemia, unspecified; I10 Essential (primary) hypertension; I25.2 Old myocardial infarction; Z98.51 Tubal ligation status; Z98.61 Coronary angioplasty status
CPT/HCPCS: 36415; 71045; 74177; 80053; 81001; 83880; 84484; 85025; 93005; 96374; 96375; 96376; 99284; J2270; J2405; Q9967

== ENCOUNTER 2019-09-14 02:19 | Emergency (ER) | payer MEDICAID ==
[~2019-09-14] VITALS: Ht 160 cm; Wt 105.2 kg
[2019-09-14] MEDS ORDERED: ACCU-CHEK COMFORT CURVE STRIP VI ONE ×2 (02:45→03:00)
[2019-09-14 03:00] LABS: Basophils # (auto) 0.1 uL; Eosinophils # (auto) 0.3 uL; Hemoglobin 10.3 g/dL (12.2-16.2); Lymphocytes # (auto) 2.1 uL; Lymphocytes % (auto) 17.5 % (10.0-50.0); Monocytes # (auto) 0.9 uL
[2019-09-14 03:02] LABS: Basophils % (auto) 0.8 % (0.0-2.0); Eosinophils % (auto) 2.8 % (0.0-7.0); Hematocrit 34.4 % (36.0-46.0); Mean Corpuscular Hemoglobin 22.2 pg (28.0-32.0); Mean Corpuscular Hgb Conc. 30.1 g/dL (32.0-36.0); Mean Corpuscular Volume 73.9 fL (80.0-100.0); Monocytes % (auto) 7.2 % (0.0-12.0); Neutrophils # (auto) 8.7 uL; Neutrophils % (auto) 71.7 % (37.0-80.0); Platelet Count (auto) 322 10^3/uL (140-450); Red Blood Cells 4.65 10^6/uL (4.0-5.20); Red Cell Distribution Width 17.7 % (11.8-14.3); White Blood Cell 12.1 10^3/uL (4.4-10.8)
[2019-09-14 04:35] LABS: Albumin 3.2 g/dL (3.4-5.0); Calcium 8.8 mg/dL (8.5-10.1)
[2019-09-14 04:38] LABS: BUN/Creatinine Ratio 11.7; Bilirubin, Total 0.7 mg/dL (0.2-1.0); Total Protein 7.5 g/dL (6.4-8.2)
[2019-09-14 07:37] VITALS: BP 105/52
== END 2019-09-14 07:42 | disposition home or self-care (01) ==
LOC: ER 02:21
DX: E11.9 Type 2 diabetes mellitus without complications (principal); J45.909 Unspecified asthma, uncomplicated; I25.10 Atherosclerotic heart disease of native coronary artery without angina pectoris; I10 Essential (primary) hypertension; I25.2 Old myocardial infarction; Z79.82 Long term (current) use of aspirin; Z79.01 Long term (current) use of anticoagulants; Z79.899 Other long term (current) drug therapy
CPT/HCPCS: 36415; 80053; 82962; 85025

== ENCOUNTER 2019-11-29 14:24 | Inpatient (IN) | payer MEDICAID ==
[~2019-11-29] VITALS: Ht 157.5 cm; Wt 112.5 kg
[~2019-11-29 14:24] MED LIST changes: -ASPI-404 PO; +ASPI-543 PO
[2019-11-29] MEDS ORDERED: ASPirin 81 mg TAB PO ONE (14:30)
[2019-11-29 15:17] LABS: INR 0.96 (0.9-1.15); Partial Thromboplastin Time 23.4 sec (23.64-32.05)
[2019-11-29 15:20] LABS: Alanine Aminotransferase 26 U/L (13-56); Albumin 3.6 g/dL (3.4-5.0); Anion Gap 12 (5-15); Aspartate Aminotransferase 13 U/L (15-37); BUN/Creatinine Ratio 16.8; Blood Urea Nitrogen 17 mg/dL (7-18); Calcium 9.6 mg/dL (8.5-10.1); Carbon Dioxide 19 mmol/L (21-32); Chloride 99 mmol/L (98-107); GFR African American 75 mL/min; GFR Non-African American 62 mL/min; Potassium 4.2 mmol/L (3.5-5.1); Sodium 130 mmol/L (136-145)
[2019-11-29 15:25] LABS: Alkaline Phosphatase 99 U/L (45-117); Bilirubin, Total 0.9 mg/dL (0.2-1.0); Total Protein 8.8 g/dL (6.4-8.2)
[2019-11-29 15:34] LABS: Glucose 435 mg/dL (74-106)
[2019-11-29 15:42] LABS: Eosinophils # (auto) 0 10 ^3/uL (0-0.8)
[2019-11-29 15:44] LABS: Urine Bacteria NONE SEEN /hpf (None Seen); Urine Blood Negative /uL (Negative); Urine Specific Gravity 1.032 (1.001-1.035); Urine WBC 1 /hpf (0 - 5)
[2019-11-29 15:44] LABS: Basophils # (auto) 0.3 10 ^3/uL (0-0.2); Hematocrit 37.9 % (36.0-46.0); Hemoglobin 11.3 g/dL (12.2-16.2); Lymphocytes % (auto) 7.8 % (10.0-50.0); Mean Corpuscular Hemoglobin 22.1 pg (28.0-32.0); Mean Corpuscular Hgb Conc. 29.8 g/dL (32.0-36.0); Mean Corpuscular Volume 74.1 fL (80.0-100.0); Monocytes # (auto) 1.2 10 ^3/uL (0-1.3); Monocytes % (auto) 4.5 % (0.0-12.0); Neutrophils # (auto) 22.2 10 ^3/uL (1.6-8.6); Neutrophils % (auto) 86.7 % (37.0-80.0); Nucleated Red Blood Cells % 0.1 %; Platelet Count (auto) 428 10^3/uL (140-450); Red Blood Cells 5.12 10^6/uL (4.0-5.20); Red Cell Distribution Width 18.1 % (11.8-14.3); White Blood Cell 25.7 10^3/uL (4.4-10.8)
[2019-11-29] MEDS ORDERED: InsuLIN REG 1unit/0.01ml Soln (100units/ml) IV ONE (15:45)
[2019-11-29] MEDS ORDERED: MORPHINE SULF INJ 2 MG/ML SYRINGE 1ML IV PRN ×2 (16:45)
[2019-11-29] MEDS ORDERED: INSULIN LANTUS (GLARGINE) 1 /0.01ml (100units/ml) SC ONE (16:45)
[2019-11-29] MEDS ORDERED: METOPROLOL SUCCINATE XL 50 MG TAB PO ONE (16:45)
[2019-11-29] MEDS ORDERED: NITROGLYCERIN 0.4 MG SL TAB SL PRN ×2 (16:45)
[2019-11-29] MEDS ORDERED: DEXTROSE (50%) 50ML SYRG IV PRN (16:45)
[2019-11-29] MEDS ORDERED: DOCUSATE SOD 100 MG CAP PO PRN (16:45)
[2019-11-29] MEDS ORDERED: FUROSEMIDE 20 MG/2 ML VIAL IV ONE (16:45)
[2019-11-29] MEDS ORDERED: METOCLOPRAMIDE HCL 5MG/ml INJ 2ml VIAL IV PRN (16:45)
[2019-11-29] MEDS ORDERED: CEFTRIAXONE SODIUM 2 GM in D5W 5% 50 ML IV ONE (16:45)
[2019-11-29] MEDS: SODIUM CHLORIDE 0.9% 1,000 ML IV SCH ×2 (16:45→20:57)
[2019-11-29] MEDS ORDERED: ALUM & MAG HYDROX-SIMETH LIQ(MAALOX) 30 ML PO PRN (16:45)
[2019-11-29] MEDS: ACCU-CHEK COMFORT CURVE STRIP VI SCH ×2 (17:00→22:08)
[2019-11-29] MEDS ORDERED: cefTRIAXone SOD 1,000 MG VL ONE (17:52)
[2019-11-29] MEDS: FUROSEMIDE 20 MG/2 ML VIAL IV SCH (18:00)
[2019-11-29] MEDS: INSULIN LISPRO (HUMAN) 100 UNITS/ML ML SC SCH (18:15)
[2019-11-29] MEDS: InsuLIN REG 1unit/0.01ml Soln (100units/ml) SC SCH ×2 (18:17→22:15)
[2019-11-29] MEDS ORDERED: HYDROmorphone HCL 2 MG/ML VL IV ONE (18:45)
[2019-11-29 18:54] LABS: Alcohol, Urine < 3.0 mg/dL (0-5); Amphetamine Screen, Urine NEGATIVE (NEGATIVE); Barbiturate Scree,Urine NEGATIVE (NEGATIVE); Benzodiazephine Screen, Urine NEGATIVE (NEGATIVE); Cannabinoid Screen, Urine NEGATIVE (NEGATIVE); Cocaine Screen, Urine NEGATIVE (NEGATIVE); Opiate Scree,Urine NEGATIVE (NEGATIVE); Phencyclidine Screen, Urine NEGATIVE (NEGATIVE)
--- NOTE | 2019-11-29 19:50 | NUR ---
Telemetry admit from [facility] admitted to Telemetry unit after SBAR received from Kaveh VALDERRAMA. Patient oriented to Arianne Daniel RN primary RN, unit, room, bed, and unit policies regarding patient care and visiting hours. Patient now on continuous telemetry monitoring, tele box #63 and telemetry reading on arrival to unit is NSR. Patient AAOx4, ambulatory. No acute S/S of distress, SOB or pain noted. Patient placed on bedside oxygen, weighed by bedscale and encouraged to call if they need something. All questions and concerns addressed, patient verbalized understanding. Bed in lowest locked position, side rails up x2, call light within reach. Will continue to monitor every hour and as needed.
[2019-11-29] MEDS: LORazepam 0.5 MG TAB PO PRN (20:57)
[2019-11-29] MEDS ORDERED: HYDR-4924 PO (21:08)
[2019-11-29] MEDS ORDERED: BECL80AE11 IN (21:08)
[2019-11-29] MEDS ORDERED: MELO1TAB73 PO (21:08)
[2019-11-29] MEDS ORDERED: TRAM50TA2 PO (21:08)
[2019-11-29] MEDS ORDERED: PRED20TA2 PO (21:08)
[2019-11-29 22:00] VITALS: BP 129/74
[2019-11-29] MEDS: RANOLAZINE ER 500 MG TAB PO SCH (22:07)
[2019-11-29] MEDS: ATORVASTATIN 20 MG TAB PO SCH (22:07)
[2019-11-29] MEDS: INSULIN LANTUS (GLARGINE) 1 /0.01ml (100units/ml) SC SCH (22:15)
[2019-11-30] MEDS: SODIUM CHLORIDE 0.9% 1,000 ML IV SCH ×5 (04:51→21:53)
[2019-11-30 05:00] VITALS: BP 121/69
[2019-11-30 05:55] LABS: Basophils # (auto) 0.1 10 ^3/uL (0-0.2); Eosinophils # (auto) 0.1 10 ^3/uL (0-0.8); Eosinophils % (auto) 0.6 % (0.0-7.0); White Blood Cell 19.3 10^3/uL (4.4-10.8)
[2019-11-30 05:59] LABS: Basophils % (auto) 0.6 % (0.0-2.0); Hematocrit 33.2 % (36.0-46.0); Lymphocytes # (auto) 4.7 10 ^3/uL (0.4-5.4); Lymphocytes % (auto) 24.5 % (10.0-50.0); Mean Corpuscular Hemoglobin 22.2 pg (28.0-32.0); Mean Corpuscular Volume 74.1 fL (80.0-100.0); Monocytes # (auto) 1.3 10 ^3/uL (0-1.3); Monocytes % (auto) 6.9 % (0.0-12.0); Neutrophils % (auto) 67.4 % (37.0-80.0); Platelet Count (auto) 316 10^3/uL (140-450); Red Blood Cells 4.49 10^6/uL (4.0-5.20); Red Cell Distribution Width 17.6 % (11.8-14.3)
[2019-11-30 06:06] LABS: INR 1.01 (0.9-1.15); Partial Thromboplastin Time 23.6 sec (23.64-32.05)
[2019-11-30 06:13] LABS: Albumin 2.8 g/dL (3.4-5.0); Calcium 7.7 mg/dL (8.5-10.1); Magnesium 2.1 mg/dL (1.6-2.6); Potassium 3.7 mmol/L (3.5-5.1)
[2019-11-30 06:18] LABS: BUN/Creatinine Ratio 22.1; Bilirubin, Total 0.9 mg/dL (0.2-1.0); Phosphorus 3.3 mg/dL (2.5-4.90); Total Protein 6.5 g/dL (6.4-8.2)
[2019-11-30] MEDS: FUROSEMIDE 20 MG/2 ML VIAL IV SCH ×2 (06:39→17:53)
[2019-11-30] MEDS: ACCU-CHEK COMFORT CURVE STRIP VI SCH ×4 (06:39→21:39)
[2019-11-30] MEDS: InsuLIN REG 1unit/0.01ml Soln (100units/ml) SC SCH ×4 (06:42→21:45)
[2019-11-30] MEDS: INSULIN LISPRO (HUMAN) 100 UNITS/ML ML SC SCH ×3 (06:43→17:57)
[2019-11-30] MEDS: HYDROcodone-ACET 5/325MG TAB PO PRN ×2 (07:48→12:57)
[2019-11-30 09:00] VITALS: BP 104/72
--- NOTE | 2019-11-30 09:42 | NUR ---
DR KAUR AT BEDSIDE NEW ORDERS ADDED
[2019-11-30] MEDS: cefTRIAXone 1GM/50ML D5W 50 ML IV SCH (10:24)
[2019-11-30] MEDS: ASPirin-EC 81 mg tab PO SCH (10:24)
[2019-11-30] MEDS: RANOLAZINE ER 500 MG TAB PO SCH ×2 (10:25→21:53)
[2019-11-30] MEDS: CLOPIDOGREL BISULFATE 75 MG TAB PO SCH (10:25)
[2019-11-30] MEDS: ENOXAPARIN SOD 40 MG/0.4 ML SYRINGE SC SCH (10:25)
[2019-11-30] MEDS: FLUoxetine HCL 20 MG CAP PO SCH (10:25)
[2019-11-30] MEDS: METOPROLOL SUCCINATE XL 50 MG TAB PO SCH (10:27)
[2019-11-30 13:00] VITALS: BP 114/65
[2019-11-30 17:00] VITALS: BP 117/68
[2019-11-30] MEDS: metFORMIN HYDROCHLORIDE 500 MG TAB PO SCH (17:53)
--- NOTE | 2019-11-30 19:09 | NUR ---
SHIFT CHANGE ENDORSED CARE TO NOC SHIFT NURSE ASIM
[2019-11-30] MEDS: MORPHINE SULF INJ 2 MG/ML SYRINGE 1ML IV PRN (20:24)
[2019-11-30 21:06] VITALS: BP 115/74
--- NOTE | 2019-11-30 21:29 | NUR ---
1900. 11/30/19. REPORT OBTAINED ON PATIENT. 1999. PATIENT SEEN. AWAKE. LYING SUPINE IN BED. BREATHING IS EVEN AND UNLABORED. ALERT AND ORIENTED X 4. COMPLAINED OF PAIN LEFT SIDE OF CHEST. IV FLUID INFUSING. IV SITE CLEAR AND DRY. 2025. MEDICATED FOR PAIN.
--- NOTE | 2019-11-30 21:33 | NUR ---
2053. NO PAIN COMPLAINT.
[2019-11-30] MEDS: INSULIN LANTUS (GLARGINE) 1 /0.01ml (100units/ml) SC SCH (21:46)
[2019-11-30] MEDS: ATORVASTATIN 20 MG TAB PO SCH (21:52)
[2019-11-30] MEDS: LORazepam 0.5 MG TAB PO PRN (21:54)
--- NOTE | 2019-12-01 00:20 | NUR ---
0000. 12/01/19 PATIENT SLEEPING AT THIS TIME.
[2019-12-01 04:44] VITALS: BP 104/61
[2019-12-01] MEDS: SODIUM CHLORIDE 0.9% 1,000 ML IV SCH ×3 (05:34→21:30)
[2019-12-01] MEDS: FUROSEMIDE 20 MG/2 ML VIAL IV SCH ×2 (05:35→17:49)
[2019-12-01] MEDS: ACCU-CHEK COMFORT CURVE STRIP VI SCH ×4 (06:30→22:22)
[2019-12-01] MEDS: InsuLIN REG 1unit/0.01ml Soln (100units/ml) SC SCH ×4 (06:35→22:22)
[2019-12-01] MEDS: INSULIN LISPRO (HUMAN) 100 UNITS/ML ML SC SCH ×3 (06:36→17:16)
--- NOTE | 2019-12-01 07:14 | NUR ---
Opening Shift Note: Assumed care of patient, awake and alert. No S/S of distress/SOB. Patient states pain level 7/10. Bed in lowest locked position, side rails up x2, call light within reach. Patient instructed on POC and to call for assist PRN, will continue to monitor for changes Q1hr and PRN.
[2019-12-01 07:17] LABS: Basophils # (auto) 0.1 10 ^3/uL (0-0.2); Eosinophils # (auto) 0.3 10 ^3/uL (0-0.8); Eosinophils % (auto) 1.9 % (0.0-7.0); Lymphocytes # (auto) 4.3 10 ^3/uL (0.4-5.4); Monocytes % (auto) 7.2 % (0.0-12.0); Nucleated Red Blood Cells % 0.1 %
[2019-12-01 07:19] LABS: Basophils % (auto) 0.7 % (0.0-2.0); Hematocrit 35.2 % (36.0-46.0); Hemoglobin 10.5 g/dL (12.2-16.2); Lymphocytes % (auto) 32.3 % (10.0-50.0); Mean Corpuscular Hemoglobin 22.2 pg (28.0-32.0); Mean Corpuscular Hgb Conc. 29.8 g/dL (32.0-36.0); Mean Corpuscular Volume 74.3 fL (80.0-100.0); Neutrophils # (auto) 7.7 10 ^3/uL (1.6-8.6); Neutrophils % (auto) 57.9 % (37.0-80.0); Platelet Count (auto) 304 10^3/uL (140-450); Red Blood Cells 4.73 10^6/uL (4.0-5.20); Red Cell Distribution Width 18.4 % (11.8-14.3); White Blood Cell 13.3 10^3/uL (4.4-10.8)
[2019-12-01 07:34] LABS: Potassium 3.7 mmol/L (3.5-5.1)
[2019-12-01 07:41] LABS: Albumin 2.7 g/dL (3.4-5.0); BUN/Creatinine Ratio 22.2; Bilirubin, Total 0.7 mg/dL (0.2-1.0); Calcium 7.5 mg/dL (8.5-10.1); Total Protein 6.7 g/dL (6.4-8.2)
[2019-12-01] MEDS: cefTRIAXone 1GM/50ML D5W 50 ML IV SCH (08:32)
[2019-12-01] MEDS: metFORMIN HYDROCHLORIDE 500 MG TAB PO SCH ×2 (08:32→17:48)
[2019-12-01] MEDS: MORPHINE SULF INJ 2 MG/ML SYRINGE 1ML IV PRN ×2 (08:33→20:17)
[2019-12-01 09:00] VITALS: BP 107/65
[2019-12-01] MEDS: ASPirin-EC 81 mg tab PO SCH (10:34)
[2019-12-01] MEDS: CLOPIDOGREL BISULFATE 75 MG TAB PO SCH (10:34)
[2019-12-01] MEDS: RANOLAZINE ER 500 MG TAB PO SCH ×2 (10:34→22:04)
[2019-12-01] MEDS: ENOXAPARIN SOD 40 MG/0.4 ML SYRINGE SC SCH (10:35)
[2019-12-01] MEDS: FLUoxetine HCL 20 MG CAP PO SCH (10:35)
[2019-12-01] MEDS: METOPROLOL SUCCINATE XL 50 MG TAB PO SCH (10:35)
--- NOTE | 2019-12-01 11:23 | NUR ---
DR. PERALTA: Dr. Tovar at bedside. discussed POC with patient. Patient verbally agreed. Dr. Tovar discussed pain with patient.
[2019-12-01] MEDS ORDERED: KETOROLAC TROMETH 30 MG/ML 1ML VIAL IV PRN (11:30)
[2019-12-01 13:00] VITALS: BP 109/72
--- NOTE | 2019-12-01 14:47 | NUR ---
IV insertion: IV access obtained, via clean sterile technique by inserting 22 gauge catheter at left forearm after 2 attempts. IV secured properly. No trauma to site. Patient tolerated well. IV removal: Right AC IV DC'd with clean sterile technique, catheter fully intact. Pressure dressing applied to site. Patient tolerated well.
[2019-12-01 16:52] VITALS: BP 102/63
--- NOTE | 2019-12-01 19:00 | NUR ---
CLOSING NOTE: Patient resting in bed. No S/S of distress or SOB at this time. Care endorsed to NOC RN.
--- NOTE | 2019-12-01 20:17 | NUR ---
Pain Medication Administration Patient complaining of "sciatic nerve pain" 02/24. Will administer pain medication per MD order. Will reassess and continue to monitor.
--- NOTE | 2019-12-01 20:47 | NUR ---
Pain Level Reassessment Patient's pain level reassessed to be 3/10. Patient states pain level is tolerable. No signs or symptoms of distress noted. Will continue to monitor.
--- NOTE | 2019-12-01 20:47 | NUR ---
Opening Shift Note Received report and assumed care of patient. Patient is awake and alert. No signs or symptoms of distress noted. Instructed patient on plan of care and to call for assistance as needed. Will continue to monitor. Addendum: 12/02/19 at 0121 by ZACHERY RIOS RN RN Incorrect time Correct time is 1933
[2019-12-01 21:52] VITALS: BP 131/70
[2019-12-01] MEDS: ATORVASTATIN 20 MG TAB PO SCH (22:04)
[2019-12-01] MEDS: LORazepam 0.5 MG TAB PO PRN (22:14)
[2019-12-01] MEDS: INSULIN LANTUS (GLARGINE) 1 /0.01ml (100units/ml) SC SCH (22:21)
[2019-12-02] MEDS: MORPHINE SULF INJ 2 MG/ML SYRINGE 1ML IV PRN ×3 (01:51→20:14)
--- NOTE | 2019-12-02 01:51 | NUR ---
Pain Medication Administration Patient complaining of "sciatic nerve pain" 02/24. Will administer pain medication per MD order. Will reassess and continue to monitor.
--- NOTE | 2019-12-02 02:21 | NUR ---
Pain Level Reassessment Patient asleep for pain level reassessment. No signs or symptoms of distress noted. Will continue to monitor.
[2019-12-02] MEDS: SODIUM CHLORIDE 0.9% 1,000 ML IV SCH ×2 (03:26→17:58)
[2019-12-02 05:08] VITALS: BP 98/56
[2019-12-02 05:43] LABS: Basophils # (auto) 0.2 10 ^3/uL (0-0.2); Basophils % (auto) 1.4 % (0.0-2.0); Eosinophils # (auto) 0.4 10 ^3/uL (0-0.8); Eosinophils % (auto) 2.6 % (0.0-7.0); Hematocrit 35.2 % (36.0-46.0); Hemoglobin 10.5 g/dL (12.2-16.2); Lymphocytes # (auto) 3.6 10 ^3/uL (0.4-5.4); Lymphocytes % (auto) 27.5 % (10.0-50.0); Mean Corpuscular Hgb Conc. 29.9 g/dL (32.0-36.0); Mean Corpuscular Volume 73.4 fL (80.0-100.0); Monocytes # (auto) 0.9 10 ^3/uL (0-1.3); Monocytes % (auto) 6.7 % (0.0-12.0); Neutrophils # (auto) 8.2 10 ^3/uL (1.6-8.6); Neutrophils % (auto) 61.8 % (37.0-80.0); Nucleated Red Blood Cells % 0.1 %; Platelet Count (auto) 284 10^3/uL (140-450); Red Blood Cells 4.79 10^6/uL (4.0-5.20); Red Cell Distribution Width 18.2 % (11.8-14.3); White Blood Cell 13.3 10^3/uL (4.4-10.8)
[2019-12-02 06:08] LABS: Albumin 2.8 g/dL (3.4-5.0); BUN/Creatinine Ratio 20.3; Calcium 8.1 mg/dL (8.5-10.1)
[2019-12-02 06:11] LABS: Bilirubin, Total 0.9 mg/dL (0.2-1.0); Total Protein 6.6 g/dL (6.4-8.2)
[2019-12-02] MEDS: ACCU-CHEK COMFORT CURVE STRIP VI SCH ×4 (06:59→21:57)
[2019-12-02] MEDS: FUROSEMIDE 20 MG/2 ML VIAL IV SCH ×2 (07:01→17:59)
[2019-12-02] MEDS: InsuLIN REG 1unit/0.01ml Soln (100units/ml) SC SCH ×4 (07:05→22:02)
[2019-12-02] MEDS: INSULIN LISPRO (HUMAN) 100 UNITS/ML ML SC SCH ×3 (07:06→17:57)
--- NOTE | 2019-12-02 07:07 | NUR ---
Opening Shift Note: Assumed care of patient, awake and alert. No S/S of distress/SOB. Patient states pain 6/10. Bed in lowest locked position, side rails up x 2, call light within reach. Patient instructed on POC and to call for assist PRN, will continue to monitor for changes Q1hr and PRN.
[2019-12-02] MEDS: metFORMIN HYDROCHLORIDE 500 MG TAB PO SCH ×2 (08:31→17:59)
[2019-12-02] MEDS: cefTRIAXone 1GM/50ML D5W 50 ML IV SCH (08:31)
[2019-12-02 09:00] VITALS: BP 111/65
[2019-12-02] MEDS: ENOXAPARIN SOD 40 MG/0.4 ML SYRINGE SC SCH (09:52)
[2019-12-02] MEDS: ASPirin-EC 81 mg tab PO SCH (09:52)
[2019-12-02] MEDS: RANOLAZINE ER 500 MG TAB PO SCH ×2 (09:52→21:43)
[2019-12-02] MEDS: FLUoxetine HCL 20 MG CAP PO SCH (09:53)
[2019-12-02] MEDS: CLOPIDOGREL BISULFATE 75 MG TAB PO SCH (09:53)
[2019-12-02] MEDS: METOPROLOL SUCCINATE XL 50 MG TAB PO SCH (09:53)
[2019-12-02 13:00] VITALS: BP 112/66
--- NOTE | 2019-12-02 13:44 | NUR ---
DR. PERALTA: Dr. Tovar at bedside. Discussed POC with patient.
[2019-12-02] MEDS ORDERED: LACTULOSE 20Gm/30ML SOLN PO PRN (13:45)
[2019-12-02 17:00] VITALS: BP 115/67
--- NOTE | 2019-12-02 18:45 | NUR ---
CLOSING NOTE: PATIENT RESTING IN BED. PATIENT STATES STOMACH DISTRESS, APPROPRIATE MEDICATIONS GIVEN. WILL CONTINUE TO MONITOR.
--- NOTE | 2019-12-02 19:40 | NUR ---
Opening Shift Note Received report and assumed care of patient. Patient is awake and alert. No signs or symptoms of distress noted. Instructed patient on plan of care and to call for assistance as needed. Will continue to monitor.
--- NOTE | 2019-12-02 20:14 | NUR ---
Pain Medication Administration Patient complaining of abdominal pain 01/24. Will administer pain medication per MD order. Will reassess pain level and will continue to monitor.
--- NOTE | 2019-12-02 20:44 | NUR ---
Pain Level Reassessment Patient' pain level reassessed to 4/10. Patient states it is tolerable. Will continue to monitor.
--- NOTE | 2019-12-02 20:59 | NUR ---
Paged Dr. Tovar Patient complaining of abdominal pain, nausea and emesis x1. Paged Dr. Tovar New orders received for Protonix 40mg PO BID and ONCE, Zofran 4mg q6hr PRN for nausea and vomiting and full liquid diet. Orders read back and verified. Will carry out and will continue to monitor.
[2019-12-02] MEDS ORDERED: ONDANSETRON HCL 4 MG/2 ML VIAL IV PRN (21:00)
[2019-12-02] MEDS ORDERED: PANTOPRAZOLE 40 MG TAB PO ONE (21:00)
[2019-12-02] MEDS: ZOLPIDEM TARTRATE 5 MG TAB PO PRN (21:43)
[2019-12-02] MEDS: ATORVASTATIN 20 MG TAB PO SCH (21:43)
[2019-12-02 22:00] VITALS: BP 131/60
[2019-12-02] MEDS: INSULIN LANTUS (GLARGINE) 1 /0.01ml (100units/ml) SC SCH (22:01)
[2019-12-03] MEDS: SODIUM CHLORIDE 0.9% 1,000 ML IV SCH ×3 (03:31→23:30)
[2019-12-03 05:00] VITALS: BP 119/73
[2019-12-03 06:51] LABS: Basophils # (auto) 0 10 ^3/uL (0-0.2); Eosinophils # (auto) 0.2 10 ^3/uL (0-0.8); Eosinophils % (auto) 1.8 % (0.0-7.0); Lymphocytes # (auto) 1.8 10 ^3/uL (0.4-5.4); White Blood Cell 13.6 10^3/uL (4.4-10.8)
[2019-12-03] MEDS: FUROSEMIDE 20 MG/2 ML VIAL IV SCH ×2 (06:52→17:36)
[2019-12-03] MEDS: ACCU-CHEK COMFORT CURVE STRIP VI SCH ×4 (06:53→22:07)
[2019-12-03 06:55] LABS: Basophils % (auto) 0.4 % (0.0-2.0); Hematocrit 34.1 % (36.0-46.0); Hemoglobin 10.4 g/dL (12.2-16.2); Lymphocytes % (auto) 13.4 % (10.0-50.0); Mean Corpuscular Hemoglobin 22.3 pg (28.0-32.0); Mean Corpuscular Hgb Conc. 30.6 g/dL (32.0-36.0); Monocytes # (auto) 0.7 10 ^3/uL (0-1.3); Monocytes % (auto) 5.5 % (0.0-12.0); Neutrophils # (auto) 10.7 10 ^3/uL (1.6-8.6); Neutrophils % (auto) 78.9 % (37.0-80.0); Platelet Count (auto) 283 10^3/uL (140-450); Red Blood Cells 4.67 10^6/uL (4.0-5.20); Red Cell Distribution Width 18.3 % (11.8-14.3)
[2019-12-03] MEDS: INSULIN LISPRO (HUMAN) 100 UNITS/ML ML SC SCH ×3 (06:57→17:33)
[2019-12-03] MEDS: InsuLIN REG 1unit/0.01ml Soln (100units/ml) SC SCH ×4 (06:57→22:15)
[2019-12-03 07:01] LABS: Potassium 4.2 mmol/L (3.5-5.1)
--- NOTE | 2019-12-03 07:14 | NUR ---
Opening Shift Note: Assumed care of patient, awake and alert. No S/S of distress/SOB or pain. Bed in lowest locked position, side rails up x 2, call light within reach. Patient instructed on POC and to call for assist PRN, will continue to monitor for changes Q1hr and PRN.
[2019-12-03 07:20] LABS: Albumin 2.6 g/dL (3.4-5.0); BUN/Creatinine Ratio 17.6; Bilirubin, Total 1.4 mg/dL (0.2-1.0); Calcium 8.1 mg/dL (8.5-10.1); Total Protein 6.4 g/dL (6.4-8.2)
[2019-12-03] MEDS: cefTRIAXone 1GM/50ML D5W 50 ML IV SCH (08:44)
[2019-12-03] MEDS: metFORMIN HYDROCHLORIDE 500 MG TAB PO SCH ×2 (08:44→17:36)
[2019-12-03 09:02] VITALS: BP 92/44
[2019-12-03] MEDS ORDERED: VANCOMYCIN PER PHARMACY 0 MG IV SCH (10:00)
[2019-12-03] MEDS: METOPROLOL SUCCINATE XL 50 MG TAB PO SCH (10:00)
[2019-12-03] MEDS: CLOPIDOGREL BISULFATE 75 MG TAB PO SCH (10:08)
[2019-12-03] MEDS: RANOLAZINE ER 500 MG TAB PO SCH ×2 (10:08→22:06)
[2019-12-03] MEDS: ASPirin-EC 81 mg tab PO SCH (10:08)
[2019-12-03] MEDS: FLUoxetine HCL 20 MG CAP PO SCH (10:09)
[2019-12-03] MEDS: PANTOPRAZOLE 40 MG TAB PO SCH (10:09)
[2019-12-03] MEDS: ENOXAPARIN SOD 40 MG/0.4 ML SYRINGE SC SCH (10:10)
[2019-12-03] MEDS: VANCOMYCIN 1GM/250ML 250 ML IV SCH ×2 (11:26→21:05)
[2019-12-03] MEDS: MORPHINE SULF INJ 2 MG/ML SYRINGE 1ML IV PRN ×2 (11:26→22:07)
--- NOTE | 2019-12-03 12:40 | NUR ---
Nutrition Assessment Notes please see attached link for complete assessment Est Energy needs ABW 80 k-1600kcals (17-20 kcal/kgBW), Est Protein needs: 80-88 gms/day (1.0-1.1 gm/kgBW). Will continue to monitor and reassess prn. Addendum: 12/03/19 at [address] Amended: Links added.
[2019-12-03 13:12] VITALS: BP 103/64
[2019-12-03] MEDS ORDERED: ALBUAER3 IN (16:14)
[2019-12-03] MEDS ORDERED: KET30I IM (16:18)
[2019-12-03] MEDS ORDERED: KETO10TA PO (16:20)
[2019-12-03 16:39] VITALS: BP 98/54
--- NOTE | 2019-12-03 18:22 | NUR ---
Assessed patients pain at this time. Patient states no pain
--- NOTE | 2019-12-03 18:55 | NUR ---
CLOSING NOTE: Patient resting in bed. No S/S of pain, distress or SOB. Care endorsed to NOC Rn
[2019-12-03 22:00] VITALS: BP 109/49
[2019-12-03] MEDS: ATORVASTATIN 20 MG TAB PO SCH (22:06)
[2019-12-03] MEDS: ZOLPIDEM TARTRATE 5 MG TAB PO PRN (22:06)
--- NOTE | 2019-12-03 22:07 | NUR ---
Pain Medication Administration Patient complaining of sciatic nerve pain 01/24. Will administer pain medication per MD order. Will reassess pain level and will continue to monitor.
[2019-12-03] MEDS: INSULIN LANTUS (GLARGINE) 1 /0.01ml (100units/ml) SC SCH (22:15)
--- NOTE | 2019-12-03 22:37 | NUR ---
Pain Level Reassessment Patient's pain level reassessed to 3/10. Patient states she is comfortable at this time. Will continue to monitor.
[2019-12-04] MEDS: SODIUM CHLORIDE 0.9% 1,000 ML IV SCH (03:34)
[2019-12-04 05:00] VITALS: BP 103/56
[2019-12-04] MEDS: InsuLIN REG 1unit/0.01ml Soln (100units/ml) SC SCH ×3 (06:37→16:11)
[2019-12-04] MEDS: ACCU-CHEK COMFORT CURVE STRIP VI SCH ×3 (06:37→16:10)
[2019-12-04] MEDS: FUROSEMIDE 20 MG/2 ML VIAL IV SCH (06:37)
[2019-12-04] MEDS: INSULIN LISPRO (HUMAN) 100 UNITS/ML ML SC SCH ×2 (06:42→12:11)
[2019-12-04 06:44] LABS: Eosinophils # (auto) 0.3 10 ^3/uL (0-0.8); Eosinophils % (auto) 2.6 % (0.0-7.0)
[2019-12-04 06:48] LABS: Basophils # (auto) 0 10 ^3/uL (0-0.2); Basophils % (auto) 0.4 % (0.0-2.0); Hematocrit 32.4 % (36.0-46.0); Lymphocytes # (auto) 2.1 10 ^3/uL (0.4-5.4); Lymphocytes % (auto) 19.4 % (10.0-50.0); Mean Corpuscular Hemoglobin 22.9 pg (28.0-32.0); Mean Corpuscular Hgb Conc. 30.8 g/dL (32.0-36.0); Mean Corpuscular Volume 74.3 fL (80.0-100.0); Monocytes # (auto) 0.8 10 ^3/uL (0-1.3); Monocytes % (auto) 7.5 % (0.0-12.0); Neutrophils # (auto) 7.4 10 ^3/uL (1.6-8.6); Neutrophils % (auto) 70.1 % (37.0-80.0); Platelet Count (auto) 236 10^3/uL (140-450); Red Blood Cells 4.36 10^6/uL (4.0-5.20); Red Cell Distribution Width 18.1 % (11.8-14.3); White Blood Cell 10.5 10^3/uL (4.4-10.8)
[2019-12-04] MEDS: VANCOMYCIN 1GM/250ML 250 ML IV SCH ×2 (06:59→16:10)
[2019-12-04 07:05] LABS: BUN/Creatinine Ratio 13.2
[2019-12-04 08:00] VITALS: BP 92/58
[2019-12-04 08:47] VITALS: BP 92/58
[2019-12-04] MEDS ORDERED: cefTRIAXone 1GM/50ML D5W 50 ML IV ONE (09:05)
[2019-12-04] MEDS: RANOLAZINE ER 500 MG TAB PO SCH (09:11)
[2019-12-04] MEDS: ASPirin-EC 81 mg tab PO SCH (09:11)
[2019-12-04] MEDS: ENOXAPARIN SOD 40 MG/0.4 ML SYRINGE SC SCH (09:11)
[2019-12-04] MEDS: FLUoxetine HCL 20 MG CAP PO SCH (09:13)
[2019-12-04] MEDS: metFORMIN HYDROCHLORIDE 500 MG TAB PO SCH (09:13)
[2019-12-04] MEDS: CLOPIDOGREL BISULFATE 75 MG TAB PO SCH (09:14)
[2019-12-04] MEDS: PANTOPRAZOLE 40 MG TAB PO SCH (09:14)
[2019-12-04] MEDS: cefTRIAXone 1GM/50ML D5W 50 ML IV SCH (09:14)
[2019-12-04] MEDS: MORPHINE SULF INJ 2 MG/ML SYRINGE 1ML IV PRN ×2 (09:15→15:31)
[2019-12-04] MEDS: METOPROLOL SUCCINATE XL 50 MG TAB PO SCH (09:15)
--- NOTE | 2019-12-04 10:00 | NUR ---
DR. KAUR AT BEDSIDE. POC DISCUSSED WITH PT.
[2019-12-04 12:41] VITALS: BP 92/58
[2019-12-04 13:00] VITALS: BP 110/64
[2019-12-04 17:00] VITALS: BP 104/57
--- NOTE | 2019-12-04 17:53 | NUR ---
Discharge instructions given as ordered. Encourage to follow up with Dr. Vineet Caballero within 1 week. All questions and concerns addressed. Patient verbalized understanding. Medication reconciliation form completed and copy given to patient. IV removed with catheter intact, pressure dressing applied. Telemetry unit returned to ICU. Patient taken to vehicle via wheelchair with all personal belongings, accompanied by staff and family member. No distress noted at time of departure.
== END 2019-12-04 18:00 | disposition home or self-care (01) | DRG 720 ==
LOC: ER 14:24 → TELE 14:25 → TELE-WESTW 19:50
PROVIDERS: ADMIT Hospitalist; ATTEND Internal Medicine
DX: A41.9 Sepsis, unspecified organism (principal); I50.31 Acute diastolic (congestive) heart failure; E43 Unspecified severe protein-calorie malnutrition; E87.2 Acidosis; I24.9 Acute ischemic heart disease, unspecified; E11.65 Type 2 diabetes mellitus with hyperglycemia; E66.01 Morbid (severe) obesity due to excess calories; Z68.41 Body mass index [BMI] 40.0-44.9, adult; I11.0 Hypertensive heart disease with heart failure; D50.9 Iron deficiency anemia, unspecified; N10 Acute pyelonephritis; G89.29 Other chronic pain; F41.9 Anxiety disorder, unspecified; J45.909 Unspecified asthma, uncomplicated; I25.10 Atherosclerotic heart disease of native coronary artery without angina pectoris; F32.9 Major depressive disorder, single episode, unspecified; E87.1 Hypo-osmolality and hyponatremia; D63.8 Anemia in other chronic diseases classified elsewhere; M94.0 Chondrocostal junction syndrome [Tietze]; M54.9 Dorsalgia, unspecified; E88.09 Other disorders of plasma-protein metabolism, not elsewhere classified; Z98.51 Tubal ligation status; Z79.899 Other long term (current) drug therapy; I25.2 Old myocardial infarction; Z79.02 Long term (current) use of antithrombotics/antiplatelets; Z79.84 Long term (current) use of oral hypoglycemic drugs; Z85.05 Personal history of malignant neoplasm of liver
CPT/HCPCS: 36415; 71046; 80048; 80053; 80307; 81001; 82962; 83036; 83735; 84100; 84484; 85025; 85610; 85730; 87040; 87086; 93005; 99291; G0378; J0696; J1815; J1885; J2405; J7060

== ENCOUNTER 2020-02-11 11:39 | Emergency (ER) | payer MEDICAID ==
[~2020-02-11] VITALS: Ht 157.5 cm; Wt 108.9 kg
[~2020-02-11 11:39] MED LIST changes: +ALBUAER3 IN; +ASPI-404 PO; -ASPI-543 PO; +BECL80AE11 IN; -CANA100T OR; -CLOP75TA28 PO; +HYDR-4924 PO; +KETO10TA PO; +MELO1TAB73 PO; -RANO500T PO; -SITA100T7 PO; +TRAM50TA2 PO
[2020-02-11 13:16] LABS: Urine Bacteria NONE SEEN /hpf (None Seen); Urine Blood 2+ /uL (Negative); Urine Hyaline Cast MANY /lpf (0 - 2); Urine Mucus FEW (None Seen); Urine Specific Gravity 1.033 (1.001-1.035); Urine WBC 44 /hpf (0 - 5)
[2020-02-11 14:07] VITALS: BP 160/72
[2020-02-11] MEDS ORDERED: ACETAMINOPHEN/CODEINE#3 (300/30mg) TAB PO ONE (15:30)
== END 2020-02-11 16:30 | disposition home or self-care (01) ==
LOC: ER 11:39
DX: M54.16 Radiculopathy, lumbar region (principal); N39.0 Urinary tract infection, site not specified; J45.909 Unspecified asthma, uncomplicated; I25.2 Old myocardial infarction; E11.9 Type 2 diabetes mellitus without complications; E78.5 Hyperlipidemia, unspecified; I10 Essential (primary) hypertension
CPT/HCPCS: 81001; 93971

== ENCOUNTER 2020-04-26 23:26 | Inpatient (IN) | payer MEDICAID ==
[~2020-04-26] VITALS: Ht 157.5 cm; Wt 110.7 kg
[~2020-04-26 23:26] MED LIST changes: -ASPI-404 PO; +ASPI-543 PO
[2020-04-27 00:08] LABS: Eosinophils # (auto) 0.6 10 ^3/uL (0-0.8)
[2020-04-27 00:10] LABS: Basophils # (auto) 0 10 ^3/uL (0-0.2); Basophils % (auto) 0.4 % (0.0-2.0); Eosinophils % (auto) 5.4 % (0.0-7.0); Hematocrit 31.9 % (36.0-46.0); Hemoglobin 10.1 g/dL (12.2-16.2); Lymphocytes # (auto) 2.6 10 ^3/uL (0.4-5.4); Lymphocytes % (auto) 24.6 % (10.0-50.0); Mean Corpuscular Hemoglobin 24.7 pg (28.0-32.0); Mean Corpuscular Hgb Conc. 31.5 g/dL (32.0-36.0); Mean Corpuscular Volume 78.4 fL (80.0-100.0); Monocytes # (auto) 0.9 10 ^3/uL (0-1.3); Monocytes % (auto) 8.3 % (0.0-12.0); Neutrophils # (auto) 6.4 10 ^3/uL (1.6-8.6); Neutrophils % (auto) 61.3 % (37.0-80.0); Nucleated Red Blood Cells % 0.1 %; Platelet Count (auto) 289 10^3/uL (140-450); Red Blood Cells 4.08 10^6/uL (4.0-5.20); Red Cell Distribution Width 18.4 % (11.8-14.3); White Blood Cell 10.4 10^3/uL (4.4-10.8)
[2020-04-27 00:15] LABS: Urine Amorphous Crystal FEW /hpf (None Seen); Urine Bacteria FEW /hpf (None Seen); Urine Blood 3+ /uL (Negative); Urine Specific Gravity 1.025 (1.001-1.035); Urine WBC 13 /hpf (0 - 5)
[2020-04-27 00:25] LABS: Alanine Aminotransferase 25 U/L (13-56); Albumin 3.3 g/dL (3.4-5.0); Anion Gap 10 (5-15); Aspartate Aminotransferase 21 U/L (15-37); BUN/Creatinine Ratio 15.9; Blood Urea Nitrogen 11 mg/dL (7-18); Calcium 8.6 mg/dL (8.5-10.1); Carbon Dioxide 22 mmol/L (21-32); Chloride 106 mmol/L (98-107); GFR African American 116 mL/min; GFR Non-African American 96 mL/min; Glucose 274 mg/dL (74-106); Potassium 3.7 mmol/L (3.5-5.1); Sodium 138 mmol/L (136-145)
[2020-04-27 00:26] LABS: INR 0.94 (0.9-1.15); Partial Thromboplastin Time 25.7 sec (23.0-31.2)
[2020-04-27 00:30] LABS: Alkaline Phosphatase 89 U/L (45-117); Bilirubin, Total 0.5 mg/dL (0.2-1.0); Total Protein 7.1 g/dL (6.4-8.2)
[2020-04-27] MEDS ORDERED: ONDANSETRON HCL 4 MG/2 ML VIAL IV ONE ×2 (04:15→08:45)
[2020-04-27] MEDS ORDERED: MORPHINE SULFATE 4 MG/ML SYR/VIAL IV ONE (04:15)
[2020-04-27] MEDS ORDERED: MORPHINE SULF INJ 2 MG/ML SYRINGE 1ML IV ONE (08:45)
[2020-04-27] MEDS ORDERED: ACETAMINOPHEN 500 MG TAB PO PRN (09:00)
[2020-04-27] MEDS ORDERED: NITROGLYCERIN 0.4 MG SL TAB SL PRN (09:00)
[2020-04-27] MEDS ORDERED: ONDANSETRON HCL 4 MG/2 ML VIAL IV PRN (09:00)
[2020-04-27] MEDS ORDERED: HYDROcodone-ACET 5/325MG TAB PO PRN (09:00)
[2020-04-27] MEDS ORDERED: MORPHINE SULF INJ 2 MG/ML SYRINGE 1ML IV PRN (09:00)
[2020-04-27] MEDS ORDERED: hydrALAZINE HCL 20 MG/ML VL IV PRN (09:00)
[2020-04-27] MEDS ORDERED: DEXTROSE (50%) 50ML SYRG IV PRN (09:00)
[2020-04-27] MEDS ORDERED: KETOROLAC TROMETH 30 MG/ML 1ML VIAL IV ONE (09:15)
[2020-04-27] MEDS: METOPROLOL SUCCINATE XL 50 MG TAB PO SCH (09:32)
[2020-04-27] MEDS: ASPirin-EC 81 mg tab PO SCH (09:32)
[2020-04-27] MEDS: FAMOTIDINE 20 MG TAB PO SCH (09:32)
[2020-04-27] MEDS: GABAPENTIN 300 MG CAP PO SCH (09:32)
[2020-04-27] MEDS: CLOPIDOGREL BISULFATE 75 MG TAB PO SCH (09:32)
[2020-04-27] MEDS: NITROGLYCERIN 0.4MG/HR TOPICAL PATCH TD SCH (09:33)
[2020-04-27 09:58] LABS: % Iron Saturation 5.9 % (15-50)
[2020-04-27] MEDS: ACCU-CHEK COMFORT CURVE STRIP VI SCH ×3 (11:31→21:44)
[2020-04-27] MEDS: InsuLIN REG 1unit/0.01ml Soln (100units/ml) SC SCH ×3 (11:37→21:45)
[2020-04-27 11:43] VITALS: BP 123/53
[2020-04-27 13:00] VITALS: BP 123/53
[2020-04-27] MEDS: MORPHINE SULF INJ 2 MG/ML SYRINGE 1ML IV PRN ×2 (14:16→21:39)
[2020-04-27 17:00] VITALS: BP 115/73
[2020-04-27] MEDS: ISOSORBIDE DINITRATE 10 MG TAB PO SCH (17:18)
[2020-04-27 20:00] VITALS: BP 112/65
[2020-04-27] MEDS: ATORVASTATIN 20 MG TAB PO SCH (21:44)
[2020-04-27 22:00] VITALS: BP 112/65
[2020-04-28 05:00] VITALS: BP 99/50
[2020-04-28] MEDS: ISOSORBIDE DINITRATE 10 MG TAB PO SCH ×3 (06:00→17:39)
[2020-04-28] MEDS: ACCU-CHEK COMFORT CURVE STRIP VI SCH ×4 (06:46→21:58)
[2020-04-28] MEDS: InsuLIN REG 1unit/0.01ml Soln (100units/ml) SC SCH ×4 (06:47→21:58)
[2020-04-28 08:00] VITALS: BP 99/68
[2020-04-28] MEDS: ASPirin-EC 81 mg tab PO SCH (09:49)
[2020-04-28] MEDS: GABAPENTIN 300 MG CAP PO SCH (09:49)
[2020-04-28] MEDS: FAMOTIDINE 20 MG TAB PO SCH (09:50)
[2020-04-28] MEDS: METOPROLOL SUCCINATE XL 50 MG TAB PO SCH (09:50)
[2020-04-28] MEDS: CLOPIDOGREL BISULFATE 75 MG TAB PO SCH (09:50)
[2020-04-28] MEDS: NITROGLYCERIN 0.4MG/HR TOPICAL PATCH TD SCH (09:51)
[2020-04-28 12:00] VITALS: BP 116/63
[2020-04-28] MEDS ORDERED: KETOROLAC TROMETH 30 MG/ML 1ML VIAL IV SCH (13:00)
[2020-04-28] MEDS: SODIUM CHLORIDE 0.9% 1,000 ML IV SCH ×2 (14:18→23:56)
[2020-04-28 17:00] VITALS: BP 116/60
[2020-04-28] MEDS: ATORVASTATIN 20 MG TAB PO SCH (21:20)
[2020-04-28] MEDS: KETOROLAC TROMETH 30 MG/ML 1ML VIAL IV SCH (21:20)
[2020-04-28 22:00] VITALS: BP 121/69
[2020-04-28] MEDS ORDERED: InsuLIN REG 1unit/0.01ml Soln (100units/ml) SC ONE (22:45)
[2020-04-28] MEDS ORDERED: metFORMIN HYDROCHLORIDE 500 MG TAB PO ONE (23:15)
[2020-04-28] MEDS ORDERED: INSULIN LANTUS (GLARGINE) 1 /0.01ml (100units/ml) SC ONE (23:15)
[2020-04-29] MEDS: KETOROLAC TROMETH 30 MG/ML 1ML VIAL IV SCH ×2 (03:22→12:19)
[2020-04-29 05:00] VITALS: BP 132/69
[2020-04-29] MEDS: ISOSORBIDE DINITRATE 10 MG TAB PO SCH ×2 (05:44→12:20)
[2020-04-29 06:41] LABS: Albumin 2.7 g/dL (3.4-5.0); Calcium 8.5 mg/dL (8.5-10.1); Potassium 4.2 mmol/L (3.5-5.1)
[2020-04-29] MEDS: ACCU-CHEK COMFORT CURVE STRIP VI SCH ×2 (06:50→12:20)
[2020-04-29 06:51] LABS: BUN/Creatinine Ratio 18.6; Bilirubin, Total 0.5 mg/dL (0.2-1.0); Total Protein 6.3 g/dL (6.4-8.2)
[2020-04-29] MEDS: InsuLIN REG 1unit/0.01ml Soln (100units/ml) SC SCH ×2 (06:54→12:20)
[2020-04-29] MEDS ORDERED: metFORMIN HYDROCHLORIDE 500 MG TAB PO SCH (08:00)
[2020-04-29 08:37] VITALS: BP 113/51
[2020-04-29] MEDS: SODIUM CHLORIDE 0.9% 1,000 ML IV SCH (08:49)
[2020-04-29] MEDS: GABAPENTIN 300 MG CAP PO SCH (09:43)
[2020-04-29] MEDS: ASPirin-EC 81 mg tab PO SCH (09:43)
[2020-04-29] MEDS: FAMOTIDINE 20 MG TAB PO SCH (09:43)
[2020-04-29] MEDS: NITROGLYCERIN 0.4MG/HR TOPICAL PATCH TD SCH (09:44)
[2020-04-29] MEDS: METOPROLOL SUCCINATE XL 50 MG TAB PO SCH (09:44)
[2020-04-29] MEDS: CLOPIDOGREL BISULFATE 75 MG TAB PO SCH (09:45)
[2020-04-29 12:50] VITALS: BP 137/70
[2020-04-29] MEDS ORDERED: INSULIN LANTUS (GLARGINE) 1 /0.01ml (100units/ml) SC SCH (22:00)
== END 2020-04-29 14:55 | disposition home or self-care (01) | DRG 203 ==
LOC: ER 23:29 → TELE 23:30 → TELE-CENTR 04-27 11:52
PROVIDERS: ADMIT Nurse Practitioner Acute Care; ATTEND Internal Medicine
DX: M94.0 Chondrocostal junction syndrome [Tietze] (principal); E43 Unspecified severe protein-calorie malnutrition; E11.40 Type 2 diabetes mellitus with diabetic neuropathy, unspecified; E66.01 Morbid (severe) obesity due to excess calories; F41.9 Anxiety disorder, unspecified; I10 Essential (primary) hypertension; I25.10 Atherosclerotic heart disease of native coronary artery without angina pectoris; E11.65 Type 2 diabetes mellitus with hyperglycemia; D50.9 Iron deficiency anemia, unspecified; E78.5 Hyperlipidemia, unspecified; J45.909 Unspecified asthma, uncomplicated; Z68.41 Body mass index [BMI] 40.0-44.9, adult; I25.2 Old myocardial infarction; Z79.84 Long term (current) use of oral hypoglycemic drugs; Z80.0 Family history of malignant neoplasm of digestive organs; Z87.442 Personal history of urinary calculi; Z91.19 Patient's noncompliance with other medical treatment and regimen; Z95.5 Presence of coronary angioplasty implant and graft; Z98.51 Tubal ligation status
CPT/HCPCS: 36415; 71045; 80053; 81001; 82962; 83036; 83540; 83550; 83880; 84484; 85025; 85379; 85610; 85730; 86141; 93005; 93306; 96374; 96375; 96376; G0378; J1815; J1885; J2405

== ENCOUNTER 2020-12-23 01:12 | Inpatient (IN) | payer MEDICAID ==
[~2020-12-23] VITALS: Ht 157.5 cm; Wt 109.0 kg
[~2020-12-23 01:12] MED LIST changes: -CLOP75TA41 PO; +CLOP75TA70 PO
[2020-12-23 02:14] LABS: Basophils # (auto) 0.2 10 ^3/uL (0-0.2); Basophils % (auto) 1.4 % (0.0-2.0); Eosinophils # (auto) 0.2 10 ^3/uL (0-0.8); Eosinophils % (auto) 1.4 % (0.0-7.0); Hematocrit 43.4 % (36.0-46.0); Hemoglobin 14.6 g/dL (12.2-16.2); Lymphocytes # (auto) 1.9 10 ^3/uL (0.4-5.4); Lymphocytes % (auto) 17.6 % (10.0-50.0); Mean Corpuscular Hemoglobin 31.5 pg (28.0-32.0); Mean Corpuscular Hgb Conc. 33.7 g/dL (32.0-36.0); Mean Corpuscular Volume 93.7 fL (80.0-100.0); Monocytes # (auto) 0.8 10 ^3/uL (0-1.3); Monocytes % (auto) 7.6 % (0.0-12.0); Neutrophils # (auto) 7.9 10 ^3/uL (1.6-8.6); Nucleated Red Blood Cells % 0.1 %; Red Blood Cells 4.64 10^6/uL (4.0-5.20); Red Cell Distribution Width 14.2 % (11.8-14.3)
[2020-12-23 02:30] LABS: INR 0.97 (0.9-1.15)
[2020-12-23] MEDS ORDERED: ONDANSETRON HCL 4 MG/2 ML VIAL IV ONE (02:30)
[2020-12-23] MEDS ORDERED: MORPHINE SULFATE INJECTION 2 MG/ML SYRG IV ONE (02:30)
[2020-12-23 02:32] LABS: Alanine Aminotransferase 19 U/L (13-56); Albumin 3.4 g/dL (3.4-5.0); Anion Gap 9 (5-15); Aspartate Aminotransferase 9 U/L (15-37); BUN/Creatinine Ratio 14.9; Blood Urea Nitrogen 11 mg/dL (7-18); Calcium 8.3 mg/dL (8.5-10.1); Carbon Dioxide 24 mmol/L (21-32); Chloride 104 mmol/L (98-107); GFR African American 107 mL/min; GFR Non-African American 89 mL/min; Glucose 317 mg/dL (74-106); Magnesium 1.7 mg/dL (1.6-2.6); Potassium 3.5 mmol/L (3.5-5.1); Sodium 137 mmol/L (136-145)
[2020-12-23 02:36] LABS: Alkaline Phosphatase 86 U/L (45-117); Total Protein 7.1 g/dL (6.4-8.2)
[2020-12-23] MEDS ORDERED: MORPHINE SULFATE 4 MG/ML SYR/VIAL IV ONE (04:15)
[2020-12-23] MEDS ORDERED: ASPirin 325 MG TAB PO ONE (04:45)
[2020-12-23] MEDS ORDERED: NITROGLYCERIN 0.4 MG SL TAB SL PRN (07:15)
[2020-12-23] MEDS ORDERED: ONDANSETRON HCL 4 MG/2 ML VIAL IV PRN (07:15)
[2020-12-23] MEDS: MORPHINE SULFATE INJECTION 2 MG/ML SYRG IV PRN ×2 (09:51→18:40)
[2020-12-23] MEDS ORDERED: AMLO-489 PO (14:06)
[2020-12-23] MEDS ORDERED: FERR-20 PO (14:08)
[2020-12-23] MEDS ORDERED: METH750T22 PO (14:16)
[2020-12-23] MEDS ORDERED: GABA300C10 PO (14:16)
[2020-12-23] MEDS ORDERED: ERTU1TAB3 PO (20:29)
[2020-12-23] MEDS ORDERED: HYDR1TAB97 PO (20:29)
[2020-12-23] MEDS ORDERED: HYDR25TA4 PO (20:29)
[2020-12-23] MEDS: ZOLPIDEM TARTRATE 5 MG TAB PO PRN (21:19)
[2020-12-23 21:36] VITALS: BP 139/79
[2020-12-24 05:00] VITALS: BP 143/76
[2020-12-24 05:39] LABS: Basophils # (auto) 0.1 10 ^3/uL (0-0.2); Basophils % (auto) 0.8 % (0.0-2.0); Eosinophils # (auto) 0.3 10 ^3/uL (0-0.8); Hematocrit 41.5 % (36.0-46.0); Hemoglobin 14.3 g/dL (12.2-16.2); Lymphocytes # (auto) 2.1 10 ^3/uL (0.4-5.4); Mean Corpuscular Hemoglobin 32.5 pg (28.0-32.0); Mean Corpuscular Hgb Conc. 34.6 g/dL (32.0-36.0); Mean Corpuscular Volume 93.9 fL (80.0-100.0); Monocytes # (auto) 0.6 10 ^3/uL (0-1.3); Monocytes % (auto) 6.9 % (0.0-12.0); Neutrophils # (auto) 5.8 10 ^3/uL (1.6-8.6); Neutrophils % (auto) 65.3 % (37.0-80.0); Nucleated Red Blood Cells % 0.1 %; Red Blood Cells 4.41 10^6/uL (4.0-5.20); Red Cell Distribution Width 14.1 % (11.8-14.3); White Blood Cell 8.9 10^3/uL (4.4-10.8)
[2020-12-24 06:02] LABS: Calcium 8.5 mg/dL (8.5-10.1); Potassium 3.9 mmol/L (3.5-5.1)
[2020-12-24 06:09] LABS: Albumin 3.2 g/dL (3.4-5.0); BUN/Creatinine Ratio 16.1; Bilirubin, Total 1.3 mg/dL (0.2-1.0); Total Protein 7.1 g/dL (6.4-8.2)
[2020-12-24 08:30] VITALS: BP 123/73
[2020-12-24] MEDS: MORPHINE SULFATE INJECTION 2 MG/ML SYRG IV PRN ×2 (09:32→17:59)
[2020-12-24 12:30] VITALS: BP 145/75
[2020-12-24] MEDS ORDERED: IODIXANOL 320MG/ML 100ML BTL IV ONE ×3 (13:45→14:33)
[2020-12-24] MEDS ORDERED: LIDOCAINE 2%HCL (LOCAL ANESTH.) INJ 20ML MDV ONE (13:45)
[2020-12-24] MEDS ORDERED: fentaNYL CITRATE 100 MCG/2 ML VL ONE (13:50)
[2020-12-24] MEDS ORDERED: ANGIOMAX 250 MG VIAL IV ONE (13:50)
[2020-12-24] MEDS ORDERED: MIDAZOLAM HCL 2MG/2ML 2ml VIAL (1mg/ml) ONE (13:50)
[2020-12-24] MEDS ORDERED: VERAPAMIL 2.5MG/ML INJ 2ML VIAL IV ONE (13:50)
[2020-12-24] MEDS ORDERED: SODIUM CHL 0.9% 50 ML ONE (13:50)
[2020-12-24] MEDS ORDERED: HYDROmorphone HCL 2 MG/ML VL ONE (14:28)
[2020-12-24] MEDS ORDERED: TICAGRELOR 90 MG TAB ONE (14:55)
[2020-12-24] MEDS ORDERED: ASPirin 81 mg TAB ONE (14:59)
[2020-12-24 17:00] VITALS: BP 117/73
[2020-12-24] MEDS ORDERED: METOPROLOL SUCCINATE XL 50 MG TAB PO ONE (18:15)
[2020-12-24] MEDS ORDERED: DEXTROSE (50%) 50ML SYRG IV PRN (18:15)
[2020-12-24] MEDS: GABAPENTIN 300 MG CAP PO SCH (21:53)
[2020-12-24] MEDS: ATORVASTATIN 20 MG TAB PO SCH (21:54)
[2020-12-24] MEDS: ACCU-CHEK COMFORT CURVE STRIP VI SCH (21:58)
[2020-12-24] MEDS ORDERED: InsuLIN REG 1unit/0.01ml Soln (100units/ml) SC SCH (22:00)
[2020-12-24] MEDS: ZOLPIDEM TARTRATE 5 MG TAB PO PRN (22:03)
[2020-12-24 22:20] VITALS: BP 127/65
[2020-12-25 05:14] VITALS: BP 124/64
[2020-12-25] MEDS: GABAPENTIN 300 MG CAP PO SCH ×3 (06:38→22:05)
[2020-12-25] MEDS: ACCU-CHEK COMFORT CURVE STRIP VI SCH ×4 (06:38→23:32)
[2020-12-25] MEDS: InsuLIN REG 1unit/0.01ml Soln (100units/ml) SC SCH ×4 (06:40→23:37)
[2020-12-25 08:41] VITALS: BP 114/54
[2020-12-25] MEDS: ASPirin 81 mg TAB PO SCH (10:12)
[2020-12-25] MEDS: FLUoxetine HCL 20 MG CAP PO SCH (10:13)
[2020-12-25] MEDS: CLOPIDOGREL BISULFATE 75 MG TAB PO SCH (10:13)
[2020-12-25] MEDS: amLODIPine BESYLATE 5 MG TAB PO SCH (10:19)
[2020-12-25] MEDS: HCTZ 25 MG TAB PO SCH (10:19)
[2020-12-25] MEDS: METOPROLOL SUCCINATE XL 50 MG TAB PO SCH (10:20)
[2020-12-25 13:00] VITALS: BP_SYST 129; BP_SYST 174; BP_DIAS 100; BP_DIAS 73
[2020-12-25] MEDS: MORPHINE SULFATE INJECTION 2 MG/ML SYRG IV PRN ×2 (14:20→22:05)
[2020-12-25 17:00] VITALS: BP 123/67
[2020-12-25] MEDS ORDERED: DEXTROSE (50%) 50ML SYRG IV PRN (18:45)
[2020-12-25] MEDS: DOCUSATE SOD 100 MG CAP PO SCH (22:04)
[2020-12-25] MEDS: LACTULOSE 20Gm/30ML SOLN PO SCH (22:04)
[2020-12-25] MEDS: ATORVASTATIN 20 MG TAB PO SCH (22:05)
[2020-12-25 23:31] VITALS: BP 108/62
[2020-12-25] MEDS: ZOLPIDEM TARTRATE 5 MG TAB PO PRN (23:32)
[2020-12-26 05:00] VITALS: BP 120/70
[2020-12-26] MEDS: ACCU-CHEK COMFORT CURVE STRIP VI SCH ×3 (05:55→17:48)
[2020-12-26] MEDS: GABAPENTIN 300 MG CAP PO SCH ×2 (06:04→14:00)
[2020-12-26] MEDS: InsuLIN REG 1unit/0.01ml Soln (100units/ml) SC SCH ×3 (06:11→17:48)
[2020-12-26 08:50] VITALS: BP 121/67
[2020-12-26] MEDS: ASPirin 81 mg TAB PO SCH (10:31)
[2020-12-26] MEDS: DOCUSATE SOD 100 MG CAP PO SCH (10:32)
[2020-12-26] MEDS: CLOPIDOGREL BISULFATE 75 MG TAB PO SCH (10:32)
[2020-12-26] MEDS: LACTULOSE 20Gm/30ML SOLN PO SCH (10:32)
[2020-12-26] MEDS: FLUoxetine HCL 20 MG CAP PO SCH (10:32)
[2020-12-26] MEDS: amLODIPine BESYLATE 5 MG TAB PO SCH (10:33)
[2020-12-26] MEDS: METOPROLOL SUCCINATE XL 50 MG TAB PO SCH (10:33)
[2020-12-26] MEDS: HCTZ 25 MG TAB PO SCH (10:34)
[2020-12-26 12:34] VITALS: BP 117/68
[2020-12-26 16:58] VITALS: BP 117/68
[2020-12-26 17:00] VITALS: BP 120/67
== END 2020-12-26 17:59 | disposition home or self-care (01) | DRG 175 ==
LOC: EDBD 01:12 → ER 01:14 → TELE 07:09 → TELE-CENTR 20:25
PROVIDERS: ADMIT Internal Medicine; ATTEND Internal Medicine
PROC: 027034Z Dilation of Coronary Artery, One Artery with Drug-eluting Intraluminal Device, Percutaneous Approach (ICD-10-PCS; principal; 2020-12-24)
PROC: B211YZZ Fluoroscopy of Multiple Coronary Arteries using Other Contrast (ICD-10-PCS; 2020-12-24)
PROC: 4A023N7 Measurement of Cardiac Sampling and Pressure, Left Heart, Percutaneous Approach (ICD-10-PCS; 2020-12-24)
DX: I25.110 Atherosclerotic heart disease of native coronary artery with unstable angina pectoris (principal); Z68.41 Body mass index [BMI] 40.0-44.9, adult; E11.9 Type 2 diabetes mellitus without complications; E66.9 Obesity, unspecified; E78.5 Hyperlipidemia, unspecified; Z20.822 Contact with and (suspected) exposure to COVID-19; F32.9 Major depressive disorder, single episode, unspecified; F41.9 Anxiety disorder, unspecified; G47.30 Sleep apnea, unspecified; J45.909 Unspecified asthma, uncomplicated; I10 Essential (primary) hypertension; I25.2 Old myocardial infarction; Z79.02 Long term (current) use of antithrombotics/antiplatelets; Z79.82 Long term (current) use of aspirin; Z80.0 Family history of malignant neoplasm of digestive organs
CPT/HCPCS: 36415; 71045; 80053; 81025; 82962; 83036; 83735; 83880; 84443; 84484; 84702; 85025; 85379; 85610; 85730; 87426; 92928; 93005; 93454; 99152; 99153; C1874; G0378; J1815; J2250; J2405; Q9967

== ENCOUNTER 2021-02-08 10:26 | Inpatient (IN) | payer MEDICAID ==
[~2021-02-08] VITALS: Ht 157.5 cm; Wt 108.0 kg
[~2021-02-08 10:26] MED LIST changes: +AMLO-489 PO; +ERTU1TAB3 PO; +FERR-20 PO; +GABA300C10 PO; +HYDR1TAB97 PO; +HYDR25TA4 PO; +METH750T22 PO
[2021-02-08 15:44] LABS: Basophils # (auto) 0.1 10 ^3/uL (0-0.2); Basophils % (auto) 0.7 % (0.0-2.0); Eosinophils # (auto) 0.5 10 ^3/uL (0-0.8); Hematocrit 46.7 % (36.0-46.0); Hemoglobin 15.6 g/dL (12.2-16.2); Lymphocytes # (auto) 1.9 10 ^3/uL (0.4-5.4); Lymphocytes % (auto) 14.6 % (10.0-50.0); Mean Corpuscular Hemoglobin 31.1 pg (28.0-32.0); Mean Corpuscular Hgb Conc. 33.4 g/dL (32.0-36.0); Monocytes # (auto) 0.9 10 ^3/uL (0-1.3); Monocytes % (auto) 6.8 % (0.0-12.0); Neutrophils # (auto) 9.4 10 ^3/uL (1.6-8.6); Neutrophils % (auto) 73.9 % (37.0-80.0); Nucleated Red Blood Cells % 0.1 %; Red Blood Cells 5.02 10^6/uL (4.0-5.20); Red Cell Distribution Width 13.5 % (11.8-14.3); White Blood Cell 12.8 10^3/uL (4.4-10.8)
[2021-02-08 16:00] LABS: Albumin 3.5 g/dL (3.4-5.0); Anion Gap 9 (5-15); Blood Urea Nitrogen 10 mg/dL (7-18); Calcium 8.7 mg/dL (8.5-10.1); Carbon Dioxide 26 mmol/L (21-32); Chloride 103 mmol/L (98-107); Glucose 242 mg/dL (74-106); Potassium 3.7 mmol/L (3.5-5.1); Sodium 138 mmol/L (136-145)
[2021-02-08 16:07] LABS: Alanine Aminotransferase 25 U/L (13-56); Alkaline Phosphatase 106 U/L (45-117); Aspartate Aminotransferase 15 U/L (15-37); BUN/Creatinine Ratio 13.9; Bilirubin, Total 1.1 mg/dL (0.2-1.0); GFR African American 110 mL/min; GFR Non-African American 91 mL/min; Total Protein 8.1 g/dL (6.4-8.2)
[2021-02-08] MEDS ORDERED: DOXYCYCLINE 100 MG TAB/CAP PO ONE (16:30)
[2021-02-08] MEDS ORDERED: ASPirin 81 mg TAB PO ONE (16:30)
[2021-02-08] MEDS ORDERED: SODIUM CHLORIDE 0.9% 1,000 ML IV ONE (16:30)
[2021-02-08] MEDS ORDERED: cefTRIAXone 1GM/50ML D5W 50 ML IV ONE (16:30)
[2021-02-08] MEDS ORDERED: MORPHINE SULF INJ 2 MG/ML SYRINGE 1ML IV PRN (18:00)
[2021-02-08] MEDS ORDERED: ACETAMINOPHEN 500 MG TAB PO PRN (18:00)
[2021-02-08] MEDS ORDERED: NITROGLYCERIN 0.4 MG SL TAB SL PRN (18:00)
[2021-02-08] MEDS ORDERED: ONDANSETRON HCL 4 MG/2 ML VIAL IV PRN (18:00)
[2021-02-08] MEDS ORDERED: DEXTROSE (50%) 50ML SYRG IV PRN (18:15)
[2021-02-08 19:34] LABS: Partial Thromboplastin Time 26.7 sec (23.0-31.2)
[2021-02-08 20:56] VITALS: BP 107/63
[2021-02-08] MEDS: ACCU-CHEK COMFORT CURVE STRIP VI SCH (21:56)
[2021-02-08] MEDS: GABAPENTIN 300 MG CAP PO SCH (21:56)
[2021-02-08] MEDS: InsuLIN REG 1unit/0.01ml Soln (100units/ml) SC SCH (22:05)
[2021-02-08] MEDS: MORPHINE SULF INJ 2 MG/ML SYRINGE 1ML IV PRN (22:57)
[2021-02-08] MEDS: guaiFENesin 200 MG/10 ML UD PO PRN (23:18)
[2021-02-08] MEDS: ZOLPIDEM TARTRATE 5 MG TAB PO PRN (23:18)
[2021-02-09 05:00] VITALS: BP 101/69
[2021-02-09] MEDS: GABAPENTIN 300 MG CAP PO SCH ×3 (06:14→21:15)
[2021-02-09] MEDS: ACCU-CHEK COMFORT CURVE STRIP VI SCH ×4 (06:15→21:46)
[2021-02-09] MEDS: InsuLIN REG 1unit/0.01ml Soln (100units/ml) SC SCH ×4 (06:39→21:47)
[2021-02-09 09:00] VITALS: BP 95/55
[2021-02-09] MEDS: MORPHINE SULF INJ 2 MG/ML SYRINGE 1ML IV PRN ×2 (09:13→13:49)
[2021-02-09] MEDS: HCTZ 25 MG TAB PO SCH (09:26)
[2021-02-09] MEDS: ASPirin 81 mg TAB PO SCH (09:26)
[2021-02-09] MEDS: amLODIPine BESYLATE 5 MG TAB PO SCH (09:26)
[2021-02-09] MEDS: CLOPIDOGREL BISULFATE 75 MG TAB PO SCH (09:27)
[2021-02-09] MEDS: FLUoxetine HCL 20 MG CAP PO SCH (09:27)
[2021-02-09] MEDS: guaiFENesin 200 MG/10 ML UD PO PRN ×2 (09:28→20:02)
[2021-02-09 10:11] LABS: BUN/Creatinine Ratio 12.3; Calcium 8.3 mg/dL (8.5-10.1); Magnesium 2.2 mg/dL (1.6-2.6); Potassium 3.6 mmol/L (3.5-5.1)
[2021-02-09 13:00] VITALS: BP 112/64
[2021-02-09] MEDS ORDERED: ALBUTEROL SULF 2.5 MG/0.5ML(0.5%) NEB SOLN NEB PRN (14:30)
[2021-02-09] MEDS: AZITHROMYCIN 500MG/ 250ML 250 ML IV SCH (14:53)
[2021-02-09] MEDS ORDERED: methylPREDNISolone SOD SUCC 40 MG/ML VL IV ONE (15:45)
[2021-02-09 17:00] VITALS: BP 97/40
[2021-02-09] MEDS: ZOLPIDEM TARTRATE 5 MG TAB PO PRN (21:58)
[2021-02-09] MEDS ORDERED: ATORVASTATIN 20 MG TAB PO SCH (22:00)
[2021-02-09 23:22] VITALS: BP 127/77
[2021-02-10 04:45] VITALS: BP 127/77
[2021-02-10 05:48] VITALS: BP 102/59
[2021-02-10] MEDS: GABAPENTIN 300 MG CAP PO SCH ×2 (06:00→14:28)
[2021-02-10 06:21] LABS: Basophils # (auto) 0.1 10 ^3/uL (0-0.2); Basophils % (auto) 0.6 % (0.0-2.0); Eosinophils # (auto) 0 10 ^3/uL (0-0.8); Hematocrit 42.3 % (36.0-46.0); Hemoglobin 14.5 g/dL (12.2-16.2); Lymphocytes # (auto) 1.2 10 ^3/uL (0.4-5.4); Lymphocytes % (auto) 7.4 % (10.0-50.0); Mean Corpuscular Hgb Conc. 34.1 g/dL (32.0-36.0); Mean Corpuscular Volume 93.6 fL (80.0-100.0); Monocytes # (auto) 0.4 10 ^3/uL (0-1.3); Monocytes % (auto) 2.3 % (0.0-12.0); Neutrophils # (auto) 14.5 10 ^3/uL (1.6-8.6); Neutrophils % (auto) 89.7 % (37.0-80.0); Nucleated Red Blood Cells % 0.1 %; Red Blood Cells 4.52 10^6/uL (4.0-5.20); Red Cell Distribution Width 13.1 % (11.8-14.3); White Blood Cell 16.2 10^3/uL (4.4-10.8)
[2021-02-10] MEDS: ACCU-CHEK COMFORT CURVE STRIP VI SCH ×3 (06:26→17:15)
[2021-02-10] MEDS: InsuLIN REG 1unit/0.01ml Soln (100units/ml) SC SCH ×3 (06:27→17:14)
[2021-02-10 06:51] LABS: Calcium 9.1 mg/dL (8.5-10.1); Potassium 4.3 mmol/L (3.5-5.1)
[2021-02-10 06:54] LABS: BUN/Creatinine Ratio 16.7; Bilirubin, Total 0.9 mg/dL (0.2-1.0); Total Protein 7.3 g/dL (6.4-8.2)
[2021-02-10 08:50] VITALS: BP 140/84
[2021-02-10] MEDS: ASPirin 81 mg TAB PO SCH (09:24)
[2021-02-10] MEDS: HCTZ 25 MG TAB PO SCH (09:24)
[2021-02-10] MEDS: AZITHROMYCIN 500MG/ 250ML 250 ML IV SCH (09:24)
[2021-02-10] MEDS: amLODIPine BESYLATE 5 MG TAB PO SCH (09:24)
[2021-02-10] MEDS: FLUoxetine HCL 20 MG CAP PO SCH (09:25)
[2021-02-10] MEDS: CLOPIDOGREL BISULFATE 75 MG TAB PO SCH (09:25)
[2021-02-10] MEDS ORDERED: methylPREDNISolone SOD SUCC 40 MG/ML VL IV SCH (10:00)
[2021-02-10] MEDS: MORPHINE SULF INJ 2 MG/ML SYRINGE 1ML IV PRN ×2 (10:53→18:28)
[2021-02-10 12:30] VITALS: BP 129/54
[2021-02-10] MEDS ORDERED: FLUTICASONE PROP NASAL SPR 0.05 % (50MCG) 16GM EACHNOSTRI ONE (13:00)
[2021-02-10] MEDS ORDERED: LORATADINE 10 MG TAB PO ONE (13:00)
[2021-02-10 16:50] VITALS: BP 109/60
== END 2021-02-10 18:40 | disposition home or self-care (01) | DRG 198 ==
LOC: ER 10:26 → TELE-WESTW 18:02
PROVIDERS: ADMIT Internal Medicine; ATTEND Internal Medicine
DX: I25.10 Atherosclerotic heart disease of native coronary artery without angina pectoris (principal); E66.01 Morbid (severe) obesity due to excess calories; E11.9 Type 2 diabetes mellitus without complications; J06.9 Acute upper respiratory infection, unspecified; I10 Essential (primary) hypertension; Z20.822 Contact with and (suspected) exposure to COVID-19; F32.9 Major depressive disorder, single episode, unspecified; F41.9 Anxiety disorder, unspecified; J45.909 Unspecified asthma, uncomplicated; E78.5 Hyperlipidemia, unspecified; Z68.41 Body mass index [BMI] 40.0-44.9, adult; Z79.899 Other long term (current) drug therapy; Z98.51 Tubal ligation status; I25.2 Old myocardial infarction; Z80.0 Family history of malignant neoplasm of digestive organs; Z80.3 Family history of malignant neoplasm of breast; Z98.61 Coronary angioplasty status
CPT/HCPCS: 36415; 71046; 80048; 80053; 82962; 83735; 83880; 84484; 85025; 85610; 85730; 87426; 93005; 94640; 96365; 96375; G0378; J0696; J1815; J2405